=== PATIENT | female | born 1990 | race Caucasian/White ===

== ENCOUNTER 2023-06-04 15:46 | Outpatient (CLI) | payer MEDICAID, SELFPAY ==
--- NOTE | 2023-06-04 16:00 | CRLHL7_ITS ---
For Patients: As a result of the Century Cures Act, medical imaging exams and procedure reports are released immediately into your electronic medical record. You may view this report before your referring provider. If you have questions, please contact your health care provider. INDICATION: Vaginal bleeding. TECHNIQUE: Ultrasound OB pelvis transvaginal. Real-time cerna-scale imaging of the pelvis was performed. COMPARISON: None. FINDINGS: No sign of viable . An ill-defined sac appears in the cervix. The ovaries are of normal size. There are no suspicious fluid collections noted in the cul-de-sac. IMPRESSION: Findings suspicious for an incomplete with an ill-defined probable gestational sac in the cervix. Dictated by Damion Castillo MD @ 06/04/2023 5:56:02 PM (Electronically Signed)
== END 2023-06-04 15:47 | disposition home or self-care (01) ==
LOC: US 15:47
PROVIDERS: Visit Provider Obstetrics & Gynecology
DX: O20.9 Hemorrhage in early pregnancy, unspecified (principal)
CPT/HCPCS: 76801; 76817; 86850; 86900; 86901

== ENCOUNTER 2024-09-11 09:08 | Outpatient (CLI) | payer OTHER, SELFPAY ==
--- NOTE | 2024-09-11 09:15 | CRLHL7_ITS ---
For Patients: As a result of the Century Cures Act, medical imaging exams and procedure reports are released immediately into your electronic medical record. You may view this report before your referring provider. If you have questions, please contact your health care provider. INDICATION: First trimester scan, establish dates. COMPARISON: None. TECHNIQUE: Real-time cerna-scale imaging of the pelvis was performed. FINDINGS: Sonographic imaging demonstrates a twin diamniotic/dichorionic intrauterine gestation. Twin A: The embryo demonstrates a regular cardiac rate measuring 176 beats per minute. The embryo`s crown-rump length measurement of 2.4 cm corresponds to a gestational age of 9 weeks 1 day with a sonographic due date of 04/15/2025. There is a normal-appearing yolk sac. There are no gross abnormalities noted within the embryo at this early state of development. The gestational sac has a normal appearance. Twin B: No heart rate. The embryo`s crown-rump length measurement of 0.35 cm corresponds to a gestational age of 6 weeks 0 days. There is a yolk sac. There are no gross abnormalities noted within the embryo at this early state of development. Small gestational sac is present measuring 1.3 cm, 6 weeks 1 day. A subchorionic hemorrhage is present measuring 3.4 x 0.6 x 1.5 cm. Corpus luteal cyst right ovary. Left ovary not visualized. IMPRESSION: Twin diamniotic/dichorionic gestation. Twin A is living and measures 9 weeks 1 day with a sonographic due date of 04/15/2025. Subchorionic hemorrhage is present measuring 3.4 x 0.6 x 1.5 cm. Twin B is nonviable. Dictated by Cirilo Page MD @ 09/11/2024 12:26:59 PM (Electronically Signed)
== END 2024-09-11 09:09 | disposition home or self-care (01) ==
LOC: US 09:09
PROVIDERS: Visit Provider Registered Nurse
DX: Z34.91 Encounter for supervision of normal pregnancy, unspecified, first trimester (principal); O30.041 Twin pregnancy, dichorionic/diamniotic, first trimester; O20.9 Hemorrhage in early pregnancy, unspecified; Z3A.09 9 weeks gestation of pregnancy
CPT/HCPCS: 76817

== ENCOUNTER 2024-09-11 09:54 | Outpatient (CLI) | payer OTHER, SELFPAY ==
[2024-09-11 15:13] LABS: Chlamydia DNA Amplified* NOT DETECTED (No Detected); GC DNA Amplified* NOT DETECTED (No Detected)
[2024-09-13 01:05] LABS: HPV Source Cervix; HPV, High Risk by TMA Not Detected
== END 2024-09-11 09:55 | disposition home or self-care (01) ==
PROVIDERS: Visit Provider Registered Nurse
DX: Z34.91 Encounter for supervision of normal pregnancy, unspecified, first trimester (principal); Z3A.08 8 weeks gestation of pregnancy; Z12.4 Encounter for screening for malignant neoplasm of cervix
CPT/HCPCS: 83020; 83021; 85660; 86592; 86703; 86704; 86706; 86762; 86787; 86803; 86850; 86900; 86901; 87086; 87340; 87491; 87591; 87624; 87625; 88141; 88142

== ENCOUNTER 2024-12-04 08:05 | Outpatient (CLI) | payer OTHER, SELFPAY | END 2024-12-04 08:06 | disposition home or self-care (01) | LOC: US 08:05 | PROVIDERS: Visit Provider Obstetrics & Gynecology | DX: Z34.92 Encounter for supervision of normal pregnancy, unspecified, second trimester (principal); Z3A.21 21 weeks gestation of pregnancy | CPT/HCPCS: 76805 ==

== ENCOUNTER 2024-12-25 09:58 | Outpatient (CLI) | payer OTHER, SELFPAY ==
--- NOTE | 2024-12-25 10:00 | CRLHL7_ITS ---
For Patients: As a result of the Century Cures Act, medical imaging exams and procedure reports are released immediately into your electronic medical record. You may view this report before your referring provider. If you have questions, please contact your health care provider. OB ULTRASOUND FOLLOW-UP LIMITED 12/25/2024 CLINICAL HISTORY: Follow-up heart views not visualized on FAS. COMPARISON: 12/04/2024, 09/11/2024. TECHNIQUE: Real time cerna scale imaging of the fetus was performed transabdominal. FINDINGS: LMP: 07/12/2024. REJI by LMP: 04/18/2025. GA: 23 weeks 5 days. GESTATION: Single. CERVIX: Visualized. POSITIONING: Vertex. AMNIOTIC FLUID: 4.5 cm SDP. PLACENTA: Technique: TA. Placenta position: Posterior. DOPPLERS: Heart Rate: 130 bpm. BIOMETRY: BDP: 5.9 cm, 24 weeks 0 days. 55.4% HC: 22.2 cm, 24 weeks 2 days. 54.1% AC: 20.1 cm, 24 weeks 5 days. 72.3% FL: 4.4 cm, 25 weeks 2 days. 57.4% FL/AC Ratio: 21.7% HC/AC Ratio: 1.1. EFW: 700.2 grams, 1 lb 9 oz. Age by this US: 24 weeks 2 days. REJI by this US: 04/14/2025. Percentile by REJI: 77.3% IMPRESSION: 1. Sonographic gestational age 24 weeks 2 days and sonographic due date 04/14/2025. Sonographic gestational age is 4 days ahead of the clinical age. 2. Estimated weight 77th percentile. Abdominal circumference 72nd percentile. 3. Four chamber heart, LVOT, RVOT, 3 vessel view, 3 vessel trachea view, aortic arch and descending aorta all visualized on today???s study. A possible small intraventricular septal defect may be present as visualized only on the color Doppler images. Level 2 maternal medicine consult recommended. Cirilo Page M.D. [facility] [email or web address] Transcribed: 11:16 am DW/Dictated by: Cirilo Page MD @ 12/27/2024 8:48:00 PM (Electronically Signed)
== END 2024-12-25 09:59 | disposition home or self-care (01) ==
LOC: US 09:59
PROVIDERS: Visit Provider Obstetrics & Gynecology
DX: Z34.92 Encounter for supervision of normal pregnancy, unspecified, second trimester (principal); Z3A.24 24 weeks gestation of pregnancy
CPT/HCPCS: 76816

== ENCOUNTER 2025-01-06 11:26 | Outpatient (CLI) | payer OTHER, SELFPAY | END 2025-01-06 11:27 | disposition home or self-care (01) | LOC: US 11:26 | PROVIDERS: Visit Provider Obstetrics & Gynecology | DX: O36.8320 Maternal care for abnormalities of the fetal heart rate or rhythm, second trimester, not applicable or unspecified (principal); Z3A.25 25 weeks gestation of pregnancy | CPT/HCPCS: 76811 ==

== ENCOUNTER 2025-01-22 10:30 | Outpatient (CLI) | payer OTHER, SELFPAY | END 2025-01-22 10:31 | disposition home or self-care (01) | LOC: NFLDREF 01-25 01:50 | PROVIDERS: Visit Provider Obstetrics & Gynecology | DX: Z34.82 Encounter for supervision of other normal pregnancy, second trimester (principal) | CPT/HCPCS: 86592 ==

== ENCOUNTER 2025-02-05 11:20 | Outpatient (CLI) | payer OTHER, SELFPAY ==
[2025-02-05 11:47] VITALS: BP 128/91; PULSE 90
[2025-02-05 11:50] LABS: Hematocrit 38.1 % (33.0-51.0); Mean Corpuscular HGB Conc 34 gm/dL (32-36); Mean Corpuscular Hemoglobin 31 pg (26-34); Mean Corpuscular Volume 92 fL (80-100); Platelet Count* 191 K/uL (140-440); Red Blood Count 4.15 m/uL (4.00-5.20); White Blood Count* 10.32 K/uL (4.50-11.00)
[2025-02-05 11:51] LABS: Slide Review Reflex No
[2025-02-05 12:02] VITALS: BP 126/79; PULSE 71
[2025-02-05 12:06] LABS: Alanine Aminotransferase* 47 U/L (4-35); Aspartate Amino Transferase* 46 U/L (12-35); Blood Urea Nitrogen* 9 mg/dL (5-24); Creatinine* 0.5 mg/dL (0.5-1.5); Estimated Glomerular Filt Rate 126 ml/min
[2025-02-05 12:07] LABS: Total Protein Urine 7 mg/dL
[2025-02-05 12:08] LABS: Creatinine Urine 41.3 mg/dL; Protein Creatinine Ratio Urine 0.17 (0-0.19)
[2025-02-05 12:16] VITALS: BP 122/79; PULSE 78
--- NOTE | 2025-02-05 13:19 | PC.OBNST ---
NST Note NST Note Start: 02/05/25 11:26 Freq: ONCE Status: Active Protocol: Document 02/05/25 13:12 [facility] (Rec: 02/05/25 13:16 [facility] Desktop) NST Note 2 Para (# of births) 0 EDC 04/18/25 Gestational Age In Weeks & Days 29 Weeks & 5 Days Patient Presented with Complaint(s) of Other Other Complaints BP monitoring Reactive Yes Appropriate for Gestational Age Yes GALINA Figueroa RNC Date 02/05/25 Reactive Yes Appropriate for Gestational Age Yes GALINA Hobbs RN Date 02/05/25 OB NST charge Yes Complete NST Note via Write Note Yes The provider's electronic signature indicates the NST is reactive/appropriate for gestational age. *Note to provider: If an addendum is required, open the patient's chart and click on the note under the Nurse/Allied Health tab.
== END 2025-02-05 12:50 | disposition home or self-care (01) ==
LOC: OB OUT 11:23 → OB 11:23
PROVIDERS: Visit Provider Obstetrics & Gynecology
DX: O30.043 Twin pregnancy, dichorionic/diamniotic, third trimester (principal); Z3A.29 29 weeks gestation of pregnancy
CPT/HCPCS: 36415; 59025; 82565; 82570; 84156; 84450; 84460; 84520; 85027; G0463

== ENCOUNTER 2025-02-06 20:15 | Outpatient (CLI) | payer OTHER, SELFPAY ==
[2025-02-06 20:22] VITALS: PULSE 81; O2SAT 100
[2025-02-06 20:48] VITALS: BP 118/76; PULSE 76
[2025-02-06 20:49] LABS: Amnisure Rom* Negative
[2025-02-06 21:15] LABS: Clue Cells No Clue Cells Seen (None Seen); Trichomonas No Trichomonas Seen (None Seen); Yeast No Yeast Seen (None Seen)
--- NOTE | 2025-02-06 21:57 | PC.OBNST ---
NST Note NST Note Start: 02/06/25 20:24 Freq: ONCE Status: Active Protocol: Document 02/06/25 21:56 [facility] (Rec: 02/06/25 21:57 [facility]) NST Note 2 Para (# of births) 0 EDC 04/18/25 Gestational Age In Weeks & Days 29 Weeks & 6 Days Patient Presented with Complaint(s) of Leaking fluid Other Complaints patient reports feeling a gush of fluid, white/cloudy Reactive Yes Appropriate for Gestational Age Yes RN Zoila Motta RN Date 02/06/25 Reactive Yes Appropriate for Gestational Age Yes GALINA Mendoza RN Date 02/06/25 OB NST charge Yes Complete NST Note via Write Note Yes The provider's electronic signature indicates the NST is reactive/appropriate for gestational age. *Note to provider: If an addendum is required, open the patient's chart and click on the note under the Nurse/Allied Health tab.
== END 2025-02-06 21:45 | disposition home or self-care (01) ==
LOC: OB OUT 20:18 → OB 20:20
PROVIDERS: Visit Provider Obstetrics & Gynecology
DX: O47.03 False labor before 37 completed weeks of gestation, third trimester (principal); Z3A.29 29 weeks gestation of pregnancy
CPT/HCPCS: 59025; 84112; 87210; G0463

== ENCOUNTER 2025-02-08 11:16 | Outpatient (CLI) | payer OTHER, SELFPAY | END 2025-02-08 11:17 | disposition home or self-care (01) | PROVIDERS: Visit Provider Advanced Practice Midwife | DX: O16.3 Unspecified maternal hypertension, third trimester (principal); Z3A.30 30 weeks gestation of pregnancy | CPT/HCPCS: 82565; 82570; 84156; 84450; 84460; 84520; 84550 ==

== ENCOUNTER 2025-02-26 11:44 | Observation (INO) | payer OTHER, SELFPAY ==
[2025-02-26] VITALS (9 sets, daily range): BP systolic 122–130; BP diastolic 71–81; PULSE 79–127; RESP 16–17; TEMP 36.5–36.8; O2SAT 97–99
[2025-02-26] MEDS: BETAMETHASONE SOD PHOS/ACETATE 6 MG/ML ML 12 MG IM (12:05)
--- NOTE | 2025-02-26 12:33 | P.LDBA_ITS ---
Subjective History of Present Illness Narrative: Naheed is a 35yo at 32w5d GA admitted to Labor and Delivery for observation in the setting of new diagnosis of preeclampsia without severe features. has been complicated by elevated blood pressure without meeting criteria for hypertension, slight transaminitis, family history of preeclampsia, small VSD. Naheed was seen for routine OB visit today. There, she was found to be hypertensive which mcdaniel her 2nd episode of mildly elevated blood pressures thus meeting criteria for hypertensive disorder of . Proceeded to stat preeclampsia labs, which were suggestive for worsening transaminitis with an AST of 58 and ALT of 56 and new proteinuria at 0.31. Remaining labs were within normal limits. Patient denies any headaches, vision changes or right upper quadrant pain. She had a growth ultrasound prior to our visit, which was within normal limits with an EFW 86 percentile. Recommended observation inpatient for serial blood pressure monitoring, betamethasone course, repeat testing and repeat labs tomorrow morning. Patient was counseled on anticipated next steps including potential transfer she had worsening transaminitis (as she would require extended admission for preeclampsia with severe features and medically indicated delivery at 34 weeks) versus dismissal to home tomorrow very close interval follow-up. Please see my clinic note for complete details. Specific Issues/Plans G2 P 0010 Partner: Eliseo? H&P completed by [] on []? ? #Preeclampsia without severe features Dx 02/26, with transaminitis noted > transferred to center for observation BMZ given 02/26- Twice weekly testing, serial growth, weekly preE labs - testing sheet completed 02/26 IOL at 37w0d - needs scheduling/consent #FHx preE On asa 81mg #Small muscular VSD [x] s/p level 2 on 01/06 [x] echo: 02/12/23. Small midseptal VSD, otherwise normal. Rec: elective cardiology eval and echo in the first month of life. [x] repeat growth at 32 weeks in NH&C with MFM #Nonimmune to hepatitis-B. Discussed 10/09/24. Vis given. Recommended. She would still like to consider 11/06/24. #Twin di-di with loss of one fetus in first trimester #Snoring with ?KAR - Consider ENT referral ? Imaging:? * 1st trimester: 09/11/2024-Twin diamniotic/dichorionic gestation. Twin A is living and measures 9 weeks 1 day with a sonographic due date of 04/15/2025. Subchorionic hemorrhage is present measuring 3.4 x 0.6 x 1.5 cm. Twin B is nonviable. * Anatomy scan 12/04/2024: Visualized anatomy is within normal limits. Suboptimal views of the cardiac structures, plan to repeat in 4 weeks. EFW 411 g at 75th percentile, AC 57th percentile. Posterior placenta, no previa, three-vessel cord. MVP of 3.9 cm. Cervix long/closed. * 12/25/2024: f/u to [facility] for cardiac views. 1. Sonographic gestational age 24 weeks 2 days and sonographic due date 04/14/2025. Sonographic gestational age is 4 days ahead of the clinical age. 2. Estimated weight 77th percentile. Abdominal circumference 72nd percentile. 3. Four chamber heart, LVOT, RVOT, 3 vessel view, 3 vessel trachea view, aortic arch and descending aorta all visualized on today's study. A possible small intraventricular septal defect may be present as visualized only on the color Doppler images. Level 2 maternal medicine consult recommended. * 01/06: Small membranous VSD - refer to peds Cardiology. Other anatomy WNL. EFW 874g at 63%ile. MVP 4.2cm. Posterior placenta, breech. * echo: Small mid septal muscular VSD noted. Otherwise normal anatomy. Recommended to have Peds Cardiology and echo in 1st month of life. * Growth 02/26: EFW 2395g at 86%ile, AC 95%ile. MVP 7.1cm. Others: []? ? COVID: Declines Flu: Declines Tdap:?02/05/25 RSV:?N/A 32wk Mental Health:?02/26/25 34wk hgb:??? Pap: [(Only high-risk abnormal pap in problem list)]? OB - Problem Based A/P Additional Plan (1) Transaminitis: Status: Acute (2) Pre-eclampsia affecting , antepartum: Status: Acute (3) Ventricular septal defect, , affecting care of mother, antepartum: Status: Acute (4) : Status: Acute Plan Naheed is a 35yo at 32w5d GA admitted for observation in the setting of newly diagnosed in early preeclampsia without severe features. Preeclampsia labs today were notable for transaminitis, AST of 58 and ALT of 56. She was recommended to be observed for 24 hours inpatient, for serial blood pressure monitoring, testing and repeat labs. - Plan Q 2 blood pressure monitoring during the day, acute for overnight. Plan to treat any sustained severe range blood pressures. - Asymptomatic at present - will monitor for headache, vision changes or right upper quadrant pain. - Repeat NST this evening and tomorrow morning. - Start betamethasone course, anticipate 2nd dose to be given prior to dismissal tomorrow (pending maternal/ stability) - Repeat CBC, Cr, AST and ALT tomorrow morning. If downtrending, plan to discharge to home with close interval follow up for preeclampsia without severe features. With worsening transaminitis or development of preE with SF by any criteria, explained possible transfer could be required for extended inpatient monitoring and medically indicated delivery at 34 weeks. If she discharges over the weekend, plan to start twice weekly testing, week ly preE labs, serial growth US and proceed with IOL at 37w0d GA. OB Exam Physical Exam Vital signs: Temp Pulse Resp BP Pulse Ox 98.2 F 80 16 126/81 99 02/26/25 11:56 02/26/25 12:00 02/26/25 11:56 02/26/25 12:00 02/26/25 11:55 Narrative: Blood pressures have been within normal limits since admission. General: Alert and oriented, no acute distress Psych: Appropriate mood and affect. Intermittently tearful. Abdomen: Gravid. NST: Reactive in clinic. Plan to repeat once further tonight and then tomorrow morning.
[2025-02-27] VITALS (7 sets, daily range): BP systolic 113–125; BP diastolic 64–73; PULSE 78–90; RESP 16; TEMP 36.5–36.9; O2SAT 97–98
[2025-02-27 06:50] LABS: Hematocrit* 37.1 % (33.0-51.0); Hemoglobin* 12.7 gm/dL (12.0-16.0); Mean Corpuscular HGB Conc 34 gm/dL (32-36); Mean Corpuscular Hemoglobin 31 pg (26-34); Mean Corpuscular Volume 91 fL (80-100); Platelet Count* 194 K/uL (140-440); Red Blood Count* 4.08 m/uL (4.00-5.20); White Blood Count* 15.53 K/uL (4.50-11.00)
[2025-02-27 07:06] LABS: Alanine Aminotransferase* 50 U/L (4-35); Aspartate Amino Transferase* 46 U/L (12-35); Blood Urea Nitrogen* 9 mg/dL (5-24); Creatinine* 0.4 mg/dL (0.5-1.5); Estimated Glomerular Filt Rate 133 ml/min
[2025-02-27 07:25] LABS: Slide Review Reflex No
[2025-02-27] MEDS: BETAMETHASONE SOD PHOS/ACETATE 6 MG/ML ML 12 MG IM (09:03)
--- NOTE | 2025-02-27 09:03 | W.PM.OB.MED ---
DS: Providers Provider Time Seen by Provider: 09:00 Date Seen: 02/27/25 Date of admission: 02/26/25 11:44 Primary care physician: Not a Local Provider Admitting Clinician: Jaelyn Miller MD Attending Physician on discharge: Jaelyn Miller MD Date of Discharge: 02/27/25 DS: Diagnosis Discharge Diagnosis (1) Transaminitis: Status: Acute (2) Pre-eclampsia affecting , antepartum: Status: Acute (3) Ventricular septal defect, , affecting care of mother, antepartum: Status: Acute (4) : Status: Acute Discharge Plan Discharge Disposition: Home, Self-Care Date of Admission: 02/26/25 11:44 Attending Provider on Discharge: Kristina Cortes Primary Care Provider: Provider,Not a Local Condition: Stable Anticipated Discharge Date/Time: 02/27/25 09:03 Discharge Medications: Continued DHA 200 mg capsule 200 mg PO DAILY aspirin 81 mg tablet,delayed release (DR/EC) 81 mg PO QDAY Discharge Orders: Discharge Order (Routine); Ordered 02/27/25 Ordered By: Kristina Cortes Patient Education: Preeclampsia During (DC) Discharge Diet: Regular Follow Up Appointments: Provider,Not a Local [Primary Care Provider, Family Practice] Forms: [employer] Info Instructions Hospital Course Course Hospital Course: Naheed is a 35yo at 32w6d GA admitted to Labor and Delivery for observation in the setting of new diagnosis of preeclampsia without severe features and elevated ALT/AST. Other complications include family history of preeclampsia, small VSD. Naheed was seen for routine OB visit with Dr. Miller yesterday 02/26/25. She was found to have mild range in blood pressures, which mcdaniel her 2nd episode of mildly elevated blood pressures. Thus meeting criteria for hypertensive disorder of . Additionally she has worsening transaminitis with an AST of 58 and ALT of 56 and new proteinuria at 0.31. Remaining labs were within normal limits. She was given BMZ#1 yesterday and admitted to L&D for 23 hour observation. Overnight, all blood pressures were within normal limits. Pre-eclampsia labs on this morning: Hgb 12.7 Plt 194 Cr 0.4 ALT 50 AST 46 ALT and AST have both decreased. Denies any persistent headache, vision changes, SOB, right upper quadrant/epigastric pain, or rapidly expanding edema. NST this AM: Baseline 120 beats per minute, moderate variability, Multiple 15 x 15 qualifying accelerations, negative decelerations, [place]: Irritable contractions. Not palpable to patient. Given reassuring BPs and stabilized liver enzymes, ok to discharge with close follow up. surveillance form has been filled out. She understands that she will require twice weekly surveillance with anticipated delivery at 37 weeks. Will given BMZ#2 this AM prior to discharge. Active movements. Denies Ctx, LOF, vaginal bleeding or abnormal vaginal discharge. Strict return and labor precautions reinforced. Labs Labs: Laboratory Tests 02/27/25 Range/Units 06:26 WBC 15.53 H (4.50-11.00) K/uL RBC 4.08 (4.00-5.20) m/uL Hgb 12.7 (12.0-16.0) gm/dL Hct 37.1 (33.0-51.0) % MCV 91 (80-100) fL MCH 31 (26-34) pg MCHC 34 (32-36) gm/dL Plt Count 194 (140-440) K/uL BUN 9 (5-24) mg/dL Creatinine 0.4 L (0.5-1.5) mg/dL Estimated GFR 133 ml/min AST 46 H (12-35) U/L ALT 50 H (4-35) U/L OB Problem List Additional Plan (1) Transaminitis: Status: Acute (2) Pre-eclampsia affecting , antepartum: Status: Acute (3) Ventricular septal defect, , affecting care of mother, antepartum: Status: Acute (4) : Status: Acute DS: Summary Vital Signs Vital Signs: Vital Signs Temp Pulse Resp BP Pulse Ox 02/27/25 07:38 87 113/72 02/27/25 07:37 98 02/27/25 07:35 85 115/73 02/27/25 07:32 97 02/27/25 07:31 98.5 F 16 02/27/25 04:37 78 115/64 97 02/27/25 00:15 97.7 F 02/27/25 00:15 86 125/70 98 02/26/25 20:15 98.1 F 02/26/25 20:15 94 122/79 02/26/25 17:58 97.7 F 80 130/77 97 02/26/25 15:59 98.2 F 79 122/71 02/26/25 14:04 17 02/26/25 14:00 82 124/72 02/26/25 12:00 80 126/81 02/26/25 11:56 98.2 F 16 02/26/25 11:55 99 02/26/25 11:54 82 L Discharge Examination Physical Examination findings: Physical exam: General: No acute distress Psych: Alert and oriented x4, full affect HEENT: Normocephalic, atraumatic Heart: Regular rate and rhythm, no murmur rub or gallop Lungs: Clear to auscultation bilaterally Abdomen: Gravid, soft, no tenderness, rebound, or guarding Lower extremities: No edema or erythema Pelvic exam: Deferred
--- NOTE | 2025-02-27 10:05 | PC.OBNST ---
NST Note NST Note Start: 02/26/25 11:50 Freq: ONCE Status: Active Protocol: Document 02/27/25 08:25 WK (Rec: 02/27/25 10:05 WK [id number]) NST Note 1 Para (# of births) 0 EDC 04/18/25 Gestational Age In 32 Weeks & 6 Days Weeks & Days High Risk Factors High Blood Pressure - Gestational Patient Presented Other with Complaint(s) of Other Complaints Observation for serial BPs, AM labs, and betamethasone. Reactive Yes Appropriate for Yes Gestational Age RN Reymundo RNC Date 02/27/25 Reactive Yes Appropriate for Yes Gestational Age RN Judy RN Date 02/27/25 OB NST charge Yes Complete NST Note Yes via Write Note The provider's electronic signature indicates the NST is reactive/appropriate for gestational age. *Note to provider: If an addendum is required, open the patient's chart and click on the note under the Nurse/Allied Health tab.
== END 2025-02-27 09:22 | disposition home or self-care (01) ==
PROVIDERS: Admitting Provider Obstetrics & Gynecology; Visit Provider Obstetrics & Gynecology
DX: O14.03 Mild to moderate pre-eclampsia, third trimester (principal); R74.01 Elevation of levels of liver transaminase levels; O35.BXX0 Maternal care for other (suspected) fetal abnormality and damage, fetal cardiac anomalies, not applicable or unspecified; R06.83 Snoring; Z3A.32 32 weeks gestation of pregnancy
CPT/HCPCS: 36415; 59025; 76816; 82565; 82570; 84156; 84450; 84460; 84520; 85027; 96372; G0378; G0379; J0702

== ENCOUNTER 2025-03-05 12:56 | Outpatient (CLI) | payer OTHER, SELFPAY ==
--- NOTE | 2025-03-05 13:00 | CRLHL7_ITS ---
For Patients: As a result of the Century Cures Act, medical imaging exams and procedure reports are released immediately into your electronic medical record. You may view this report before your referring provider. If you have questions, please contact your health care provider. INDICATION: Preeclampsia TECHNIQUE: Ultrasound OB pelvis transabdominal. Real-time cerna-scale imaging of the fetus was performed with color Doppler and spectral Doppler analysis of the umbilical artery without stress testing. COMPARISON: 02/26/2025 FINDINGS: Sonographic imaging demonstrates a single living intrauterine gestation. Fetus demonstrates a regular cardiac rate of 159 beats per minute. Fetus has a cephalic orientation. The placenta lies posterior. Amniotic fluid volume appears normal with a MVP of 7.4 cm. breathing movements, motion, and tone were all observed. IMPRESSION: Single viable intrauterine with a biophysical profile 05/07. Dictated by Jarrod Rubio MD @ 03/05/2025 2:29:10 PM (Electronically Signed)
== END 2025-03-05 12:57 | disposition home or self-care (01) ==
LOC: US 12:56
PROVIDERS: Visit Provider Obstetrics & Gynecology
DX: O14.90 Unspecified pre-eclampsia, unspecified trimester (principal)
CPT/HCPCS: 76819; 82565; 84450; 84460

== ENCOUNTER 2025-03-12 12:07 | Outpatient (CLI) | payer OTHER, SELFPAY ==
--- NOTE | 2025-03-12 12:15 | CRLHL7_ITS ---
For Patients: As a result of the Cures Act, medical imaging exams and procedure reports are released immediately into your electronic medical record. You may view this report before your referring provider. If you have questions, please contact your health care provider. OBSTETRICAL ULTRASOUND ??? BIOPHYSICAL PROFILE, 03/12/2025 INDICATION: Preeclampsia without severe features. CLINICAL HISTORY: LMP: 07/12/2024 REJI by LMP: 04/18/2025 Gestational Age: 34 weeks 5 days COMPARISON: 03/05/2025, 02/26/2025, 01/06/2025. TECHNIQUE: Real-time cerna-scale transabdominal imaging of the fetus was performed. FINDINGS: Fetus: Single Cervix: Not visualized positioning: Vertex Amniotic Fluid: 7.0 cm SDP BIOPHYSICAL PROFILE: Gross body movements: 2 tone: 2 Respiratory activity: 2 Amniotic fluid SDP: 2 Total score: 8 Placenta technique: Transabdominal Placenta position: Posterior heart rate: 139 bpm IMPRESSION: 1. Normal biophysical profile score of 8/8. CIRILO ALVAREZ M.D. Diagnostic Radiologist [email or web address] Transcribed: 5:[address]/Dictated by: Cirilo Alvarez MD @ 03/12/2025 3:09:00 PM (Electronically Signed)
== END 2025-03-12 12:08 | disposition home or self-care (01) ==
LOC: US 12:08
PROVIDERS: Visit Provider Obstetrics & Gynecology
DX: O14.03 Mild to moderate pre-eclampsia, third trimester (principal); Z3A.34 34 weeks gestation of pregnancy
CPT/HCPCS: 76819; 82565; 84450; 84460

== ENCOUNTER 2025-03-19 13:43 | Outpatient (CLI) | payer OTHER, SELFPAY ==
--- OUTSIDE RECORDS SUMMARY | 2025-02-12 11:41 | XMS_ITS | Encounter Summary ---
Author Organization [facility] Address [address] [place] [address] Care Team Providers Care Chassis Driver Name Role Phone No Ref-Primary, Physician Primary Care Provider Reason for Referral * CV Testing (Routine) - Closed Specialty Diagnoses / Procedures Referred By Contac t Referred To Contact Cardiology Diagnoses ventricular septal defect affecting antepartum care of mother Procedures Echo (TTE) Complete Non-Fv Credentialed Provider, Radiology [facility] [address] [place] [phone] Phone: tel: Referral ID Status Reason Start Date Expiration Date Visits Re quested Visits Authorized [id number] Closed 01/07/2025 01/07/2026 1 1 Reason for Visit * CV Testing (Routine) - Closed Specialty Diagnoses / Procedures Referred By Contac t Referred To Contact Cardiology Diagnoses ventricular septal defect affecting antepartum care of mother Procedures Echo (TTE) Complete Non-Fv Credentialed Provider, Radiology [facility] [address] [place] [phone] Phone: tel: Referral ID Status Reason Start Date Expiration Date Visits Re quested Visits Authorized [id number] Closed 01/07/2025 01/07/2026 1 1 Encounter Details Date Type Department Care Team (Late st Contact Info) Description 02/12/2025 11:41 AM CDT - 02/12/2025 11:59 PM CDT Hospital Encounter [facility] [address] [place] [phone] Non-Fv Credentialed Provider, Radiology Joseph Miguel MD [facility] [address] [place] [id number] ventricular septal defect affecting antepartum care of mother Discharge Disposition: Home or Self Care Social History Tobacco Use Types Packs/Day Years Used Date Smoking Tobacco: Never Assessed Comments Unknown Sex and Gender Information Value Date Recorded Sex Assigned at Female 02/11/2025 8:06 PM CDT 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 Gender Identity Female 02/11/2025 8:06 PM CDT Sexual Orientation Straight 02/11/2025 8: 06 PM CDT documented as of this encounter Plan of Treatment Not on file documented as of this encounter Procedures Procedure Name Priority Date/Time Associated Diagnosis Comments ECHO COMPLETE Routine 02/12/2025 1 2:22 PM CDT ventricular septal defect affecting antepartum care of mother documented in this encounter Results * ECHO COMPLETE (02/12/2025 12:22 PM CDT) Anatomical Region Laterality Modality Echocardiography 02/12/2025 11:5 5 AM CDT Narrative 02/17/2025 11:16 AM CDT [id number]^NON-FV CREDENTIALED PROVIDER^RADIOLOGY Study ID: [id number] [address] [address] Echocardiogram Name: NAHEED ESPINO Study Date: 02/12/2025 11:55 AM Patient Location: [facility] Gender: Female Patient Class: Outpatient : 1990 Age: 35 yrs Ordering Provider: NON-FV CREDENTIALED PROVIDER, RADIOLOGY Referring Provider: JOSEPH MIGUEL Performed By: La Hicks RDCS Reading Physician: Ramirez Ambrose MD Reason For Study: ventricular septal defect affecting antepartum care of mot Data: Number of fetuses: This is a taylor gestation. Due date: 04/18/2025. Gestational age: 30w5d. Delivery at: [place]. Specific Indication: echocardiogram performed for suspected ventricular septal defect. CONCLUSIONS Small midseptal muscular ventricular septal defect; otherwise normal cardia anatomy. Normal right and left ventricular size and function. No effusion. The abnormal results of the echocardiogram were explained to the patient. No additional echocardiograms are recommended. An elective cardiology evaluation and echocardiogram is recommended in the first month of life. Technical Information: A complete two dimensional, MMODE, spectral and color Doppler echocardiogram is performed. The study quality is good. position and segmental anatomy: The fetus in vertex position. The heart is in left chest. The cardiac apex points towards the left. There is normal atrial arrangement, with concordant atrioventricular and ventriculoarterial connections. The abdominal aorta is to the left of the spine. There is a left sided stomach. Systemic and pulmonary veins: The systemic venous return is normal. At least one right and one left pulmonary veins are seen returning to the left atrium. Atria and atrial septum: Normal right atrial size. The left atrium is normal in size. The flap of the foramen ovale opens in to the left atrium. There is laminar snnfg-nz-asoo shunting across the foramen ovale. Atrioventricular valves: The tricuspid valve is normal in appearance and motion. There is no tricuspid insufficiency. The mitral valve is normal in appearance and motion. There is no mitral valve insufficiency. Ventricles and ventricular septum: Normal right ventricular size. Normal right ventricular systolic function. Normal left ventricular size. Normal left ventricular systolic function. There is a small to moderate, mid-muscular ventricular septal defect. Outflows tracts: Normal great artery relationship. The right ventricular outflow tract is normal in caliber. The pulmonary valve has normal appearance and motion. There is normal flow across the pulmonary valve. There is unobstructed flow through the left ventricular outflow tract. The aortic valve has normal appearance and motion. There is normal flow across the aortic valve. Great arteries: The main pulmonary artery has normal appearance. There is unobstructed flow in the main pulmonary artery. The pulmonary artery bifurcation is normal. There is unobstructed flow in both branch pulmonary arteries. The ductus arteriosus has normal appearance with normal antegrade flow. There is unobstructed antegrade flow in the ascending aorta. The aortic arch appears normal. There is unobstructed antegrade flow in the aortic arch. Effusions and extracardiac findings: No pericardial effusion. No hydrops. cardiac rhythm: heart rate is regular at 131 bpm. Doppler: There is normal flow in the ductus venosus, umbilical artery and umbilical vein. echocardiography cannot rule out small atrial or ventricular septal defects, persistent ductus arteriosus, mild coarctation of the aorta, partial anomalous pulmonary venous return, minor anatomic valve anomalies or coronary artery anomalies. Reading Physician: Ramirez Ambrose MD 02/17/2025 11:16 AM Procedure Note Ramirez Ambrose MD - 02/17/2025 [id number]^NON-FV CREDENTIALED PROVIDER^RADIOLOGY Study ID:[id number] [id number] [place] [address] Echocardiogram Name: NAHEED ESPINO Study Date: 02/12/2025 11:55 AM Patient Location:[facility] Gender: Female Patient Class:Outpatient : 1990 Age: 35 yrs Ordering Provider: NON-FV CREDENTIALED PROVIDER, RADIOLOGY Referring Provider: JOSEPH MIGUEL Performed By: La Hicks RDCS Reading Physician: Ramirez Ambrose MD Reason For Study: ventricular septal defect affecting antepartumcare of mot Data: Number of fetuses: This is a taylor gestation. Duedate: 04/18/2025. Gestational age: 30w5d. Delivery at: [place]. Specific Indication: echocardiogram performed for suspected ventricular septal defect. CONCLUSIONS Small midseptal muscular ventricular septal defect; otherwise normalcardia anatomy. Normal right and left ventricular size and function. Noeffusion. The abnormal results of the echocardiogram were explained to the patient. No additional echocardiograms are recommended. Anelective cardiology evaluation and echocardiogram is recommended in the first monthof life. Technical Information: A complete two dimensional, MMODE, spectral and color Doppler echocardiogram is performed. The study quality is good. position and segmental anatomy: The fetus in vertex position. The heart is in left chest. The cardiacapex points towards the left. There is normal atrial arrangement, withconcordant atrioventricular and ventriculoarterial connections. The abdominal aortais to the left of the spine. There is a left sided stomach. Systemic and pulmonary veins: The systemic venous return is normal. At least one right and one left pulmonary veins are seen returning to the left atrium. Atria and atrial septum: Normal right atrial size. The left atrium is normal in size. The flap ofthe foramen ovale opens in to the left atrium. There is htywkunlduoa-ag-udna shunting across the foramen ovale. Atrioventricular valves: The tricuspid valve is normal in appearance and motion. There is notricuspid insufficiency. The mitral valve is normal in appearance and motion. Thereis no mitral valve insufficiency. Ventricles and ventricular septum: Normal right ventricular size. Normal right ventricular systolicfunction. Normal left ventricular size. Normal left ventricular systolic function.There is a small to moderate, mid-muscular ventricular septal defect. Outflows tracts: Normal great artery relationship. The right ventricular outflow tract is normal in caliber. The pulmonary valve has normal appearance and motion.There is normal flow across the pulmonary valve. There is unobstructed flowthrough the left ventricular outflow tract. The aortic valve has normal appearanceand motion. There is normal flow across the aortic valve. Great arteries: The main pulmonary artery has normal appearance. There is unobstructedflow in the main pulmonary artery. The pulmonary artery bifurcation is normal.There is unobstructed flow in both branch pulmonary arteries. The ductusarteriosus has normal appearance with normal antegrade flow. There is unobstructed antegrade flow in the ascending aorta. The aortic arch appears normal.There is unobstructed antegrade flow in the aortic arch. Effusions and extracardiac findings: No pericardial effusion. No hydrops. cardiac rhythm: heart rate is regular at 131 bpm. Doppler: There is normal flow in the ductus venosus, umbilical artery andumbilical vein. echocardiography cannot rule out small atrial or ventricularseptal defects, persistent ductus arteriosus, mild coarctation of the aorta,partial anomalous pulmonary venous return, minor anatomic valve anomalies orcoronary artery anomalies. Reading Physician: Ramirez Ambrose MD 02/17/2025 11:16 AM us Radiology Non-Fv Credentialed Provider CV PEDS E CHO ORDERABLES Edited Result - Final documented in this encounter Visit Diagnoses Diagnosis ventricular septal defect affecting antepartum care of mother Other known or suspected abnormality, not elsewhere classified, affecting management of mother, antepartum condition or complication documented in this encounter Care Teams Chassis Driver Relationship Specialty Start Date End Date No Ref-Primary, Physician PCP - General 01/07/25 documented as of this encounter
--- OUTSIDE RECORDS SUMMARY | 2025-02-12 11:41 | XMS_ITS | Encounter Summary ---
Author Organization [facility] Address [address] [place] [id number] Care Team Providers Care Apprentice Lineman Third Step Name Role Phone No Ref-Primary, Physician Primary Care Provider Reason for Referral * CV Testing (Routine) - Closed Specialty Diagnoses / Procedures Referred By Contac t Referred To Contact Cardiology Diagnoses ventricular septal defect affecting antepartum care of mother Procedures Echo (TTE) Complete Non-Fv Credentialed Provider, Radiology [facility] [address] [place] [phone] Phone: tel: Referral ID Status Reason Start Date Expiration Date Visits Re quested Visits Authorized [id number] Closed 01/07/2025 01/07/2026 1 1 Reason for Visit * CV Testing (Routine) - Closed Specialty Diagnoses / Procedures Referred By Contac t Referred To Contact Cardiology Diagnoses ventricular septal defect affecting antepartum care of mother Procedures Echo (TTE) Complete Non-Fv Credentialed Provider, Radiology [facility] [address] [place] [phone] Phone: tel: Referral ID Status Reason Start Date Expiration Date Visits Re quested Visits Authorized [id number] Closed 01/07/2025 01/07/2026 1 1 Encounter Details Date Type Department Care Team (Late st Contact Info) Description 02/12/2025 11:41 AM CDT - 02/12/2025 11:59 PM CDT Hospital Encounter [facility] [address] [place] [phone] Non-Fv Credentialed Provider, Radiology oJseph Miguel MD [facility] [address] [place] [id number] ventricular septal defect affecting antepartum care of mother Discharge Disposition: Home or Self Care Social History Tobacco Use Types Packs/Day Years Used Date Smoking Tobacco: Never Assessed Comments Unknown Sex and Gender Information Value Date Recorded Sex Assigned at Female 02/11/2025 8:06 PM CDT 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 Gestational age: 30w5d. Delivery at: [facility]. Specific Indication: echocardiogram performed for suspected ventricular [...] to the left atrium. There is laminar [id number]-bv-kiwz shunting across the foramen ovale. Atrioventricular valves: [...] Procedure Note Ramirez Ambrose MD - 02/17/2025 [id number]^NON-FV CREDENTIALED PROVIDER^RADIOLOGY Study ID:[id number] [id number] [place] [address] Echocardiogram Name: NAHEED ESPINO Study Date: 02/12/2025 11:55 AM Patient Location:[facility] Gender: Female Patient Class:Outpatient : 1990 Age: 35 yrs Ordering Provider: NON-FV CREDENTIALED PROVIDER, RADIOLOGY Referring Provider: JOSEPH MIGUEL Performed By: La Hicks RDCS Reading Physician: Ramirez Ambrose MD Reason For Study: ventricular septal defect affecting antepartumcare of mot Data: Number of fetuses: This is a taylor gestation. Duedate: 04/18/2025. Gestational age: 30w5d. Delivery at: [facility]. Specific Indication: echocardiogram performed for suspected ventricular [...] in to the left atrium. There is lxhsegribauz-im-wngb shunting across the foramen ovale. Atrioventricular valves: [...] complication documented in this encounter Care Teams Apprentice Lineman Third Step Relationship Specialty Start Date End Date No Ref-Primary, Physician PCP - General 01/07/25 documented as of this encounter
--- NOTE | 2025-03-19 14:00 | CRLHL7_ITS ---
For Patients: As a result of the Century Cures Act, medical imaging exams and procedure reports are released immediately into your electronic medical record. You may view this report before your referring provider. If you have questions, please contact your health care provider. INDICATION: Preeclampsia TECHNIQUE: Ultrasound OB pelvis transabdominal. Real-time cerna-scale imaging of the fetus was performed with color Doppler and spectral Doppler analysis of the umbilical artery without stress testing. COMPARISON: 03/12/2025 FINDINGS: Sonographic imaging demonstrates a single living intrauterine gestation. Fetus demonstrates a regular cardiac rate of 147 beats per minute. Fetus has a cephalic orientation. The placenta lies posterior. Amniotic fluid volume appears normal with a MVP of 7.0 cm. breathing movements, motion, and tone were all observed. IMPRESSION: Single viable intrauterine with a biophysical profile 05/07. Dictated by Jarrod Rubio MD @ 03/19/2025 2:53:05 PM (Electronically Signed)
--- OUTSIDE RECORDS SUMMARY | 2025-03-19 14:29 | XMS_ITS | Clinical Summary ---
Author Organization [facility] Address [address] [place] [address] Care Team Providers Care Commercial Account Manager Name Role Phone Joseph Escalante MD Primary Care Provider [phone] Source Comments You are receiving this document as you are listed as the primary care provider,follow-up provider, or the patient has been referred to you for consultation.This is in compliance with the Medicare and[facility] EHR Incentive Program,which states Providers who transition their patient to another setting of careor provider of care or refers their patient to another provider of care shouldprovide summary care record for each transition of care or referral. [facility] Allergies No known active allergies Medications No known medications Immunizations Immunization Administration Dates Next Due HepB Ped/Adol (0-18 yrs) 04/20/2003,03/19/2003 Influenza IIV4 (Quadrivalent) 0.5mL (84291) 11/01 MMR 03/19/2003 Pfizer Monovalent 12+ Purple Top 07/19/2021,07/01,06/28/2021 Td 03/19/2003 Tdap 11/19/2019 Varicella 06/15/2020 Family History Medical History Relation Name Comments Hypertension Father Cataract Maternal Grandmother Cataract Paternal Grandmother Amblyopia/Strabismus Negative Family History Blindness Negative Family History Cancer Negative Family History Diabetes Negative Family History Macular Degeneration Negative Family History Retinal Detachment Negative Family History Stroke Negative Family History Thyroid Disorder Negative Family History Relation Name Status Comments Father Maternal Grandmother Paternal Grandmother Social History Tobacco Use Types Packs/Day Years Used Date Smoking Tobacco: Never Smokeless Tobacco: Never Alcohol Use Standard Drinks/Week Comments Yes 0 (1 standard drink = 0.6 oz pur e alcohol) Comments No Sex and Gender Information Value Date Recorded Sex Assigned at Not on file Legal Sex Female 5:07 AM CDT Gender Identity Not on file Sexual Orientation Not on file Last Filed Vital Signs Vital Sign Reading Time Taken Comments Blood Pressure 102/70 12/25/2005 3:00 PM LEAD SYSTEMS ARCHITECT Pulse 76 03/04/2006 7:15 PM CDT Temperature 37.1 C (98.7 F) 03/04/2006 7:15 PM CDT Respiratory Rate 18 03/04/2006 7:15 PM CDT Oxygen Saturation - - Inhaled Oxygen Concentration - - Weight 81.6 kg (180 lb) 07/15/2020 2:08 PM CDT Height 165.1 cm (5' 5) 07/15/2020 2:08 PM CDT Body Mass Index 29.95 07/15/2020 2:08 PM CDT Plan of Treatment Health Maintenance Due Date Last Done Comments Cervical Cancer Screening Due 1991 Hep C Screening (Preventive Services) 1991 HepB Vaccine (3) 07/09/2003 04/20/2003, 03/19/2003 HIV Screening (Preventive Services) 2007 Adult Preventive Visit 2009 03/19/2003 COVID-19 Vaccine (4 - 2023-2 5 season) 2024 07/19/2021, 07/19/2021, 06/28/2021 Influenza Vaccine (Season Ended) 2025 11/19/2019 DTaP/Tdap/Td Vaccine (3 - Tdap) 11/19/2029 11/19/2019, 03/19/2003 Zoster/Shingles Vaccine (1 o f 2) 2041 HPV Vaccine Aged Out No longer eligi ble based on patient's age to complete this topic HepA Vaccine Aged Out No longer eligi ble based on patient's age to complete this topic Hib Vaccine Aged Out No longer eligi ble based on patient's age to complete this topic IPV (Polio) Vaccine Aged Out No longe r eligible based on patient's age to complete this topic MCV4 Vaccine Aged Out No longer eligi ble based on patient's age to complete this topic Meningococcal B Vaccine Aged Out No l onger eligible based on patient's age to complete this topic Pneumococcal Vaccine Aged Out No long er eligible based on patient's age to complete this topic Insurance SELF MANAGED CARE HP COMM HP FAMILY DENTAL SELF MANAGED CARE * Guarantor: Yasmeen Espino Account Type Relation to Patient Date of Phone Billing Address Personal/Family 1968 [address] [facility] [place] [address] Care Teams Commercial Account Manager Relationship Specialty [place] [address] [place] [address] PCP - General 10/03/20
--- OUTSIDE RECORDS SUMMARY | 2025-03-19 14:29 | XMS_ITS | Encounter Summary ---
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
--- OUTSIDE RECORDS SUMMARY | 2025-03-19 14:29 | XMS_ITS | Encounter Summary ---
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
--- OUTSIDE RECORDS SUMMARY | 2025-03-19 14:29 | XMS_ITS | Clinical Summary ---
Author Organization [facility] Address [address] [place] [address]. [place] [address] Care Team Providers Care Merchandise Pickup/Receiving Associate Name Role Phone No Ref-Primary, Physician Primary Care Provider Encounters Date Type Department Care Team Description 02/12/2025 11:41 AM CDT - 02/12/2025 11:59 PM CDT Hospital Encounter [facility] [address] [place] [phone] Non- Credentialed Provider, Radiology Joseph Miguel MD ventricular septal defect affecting antepartum care of mother Discharge Disposition: Home or Self Care 02/12/2025 Travel 02/11/2025 Travel 01/06/2025 Medical Correspondence [facility] Information Management [address] [facility] [address] [place] [address] Scan, Non-Provider from Last 3 Months Social History Tobacco Use Types Packs/Day Years Used Date Smoking Tobacco: Never Assessed Comments Unknown Sex and Gender Information Value Date Recorded Sex Assigned at Female 02/11/2025 8:06 PM CDT Legal Sex Female 4:22 AM WATER MAIN PIPE LAYER Gender Identity Female 02/11/2025 8:06 PM CDT Sexual Orientation Straight 02/11/2025 8: 06 PM CDT Plan of Treatment Health Maintenance Due Date Last Done Comments ADVANCE CARE PLANNING 1990 ANNUAL REVIEW OF HM ORDERS 1991 HEPATITIS B VACCINE (3 of 3 - 3-dose series) 07/09/2003 04/20/2003, 03/19/2003 YEARLY PREVENTIVE VISIT 03/19/2004 03/19/2003 HIV SCREENING 2006 HEPATITIS C SCREENING 2009 PNEUMOCOCCAL VACCINE: PEDIATRICS (0 to 5 YEARS) AND AT-RISK PATIENTS (6 to 49 YEARS) (1 of 2 - PCV) 2010 PAP 01/17/2012 COVID-19 VACCINE (3 - 2023-2 5 season) 2024 07/19/2021, 06/28/2021 PHQ-2 (once per calendar year) 2024 INFLUENZA VACCINE (Season Ended) 2025 11/19/2019 DTAP/TDAP/TD VACCINE (4 - Td or Tdap) 02/05/2035 02/05/2025, 11/19/2019, 03/19/2003 ZOSTER VACCINE (1 of 2) 2041 HPV VACCINE Aged Out No longer eligi ble based on patient's age to complete this topic MENINGITIS VACCINE Aged Out No longer eligible based on patient's age to complete this topic Procedures Procedure Name Priority Date/Time Associated Diagnosis Comments ECHO COMPLETE Routine 02/12/2025 1 2:22 PM CDT ventricular septal defect affecting antepartum care of mother from Last 3 Months Results * ECHO COMPLETE (02/12/2025 12:22 PM CDT) Anatomical Region Laterality Modality Echocardiography 02/12/2025 11:5 5 AM CDT Narrative 02/17/2025 11:16 AM CDT [id number]^NON-FV CREDENTIALED PROVIDER^RADIOLOGY Study ID: [id number] [facility] [address] [address] Echocardiogram Name: NAHEED ESPINO Study Date: 02/12/2025 11:55 AM Patient Location: [facility] Gender: Female Patient Class: Outpatient : 1990 Age: 35 yrs Ordering Provider: NON-FV CREDENTIALED PROVIDER, RADIOLOGY Referring Provider: JOSEPH MIGUEL Performed By: La Hicks RDCS Reading Physician: Ramirez Ambrose MD Reason For Study: ventricular septal defect affecting antepartum care of mot Data: Number of fetuses: This is a taylor gestation. Due date: 04/18/2025. Gestational age: 30w5d. Delivery at: [place]. Specific Indication: echocardiogram performed for suspected ventricular [...] to the left atrium. There is laminar ovvfz-jr-yuus shunting across the foramen ovale. Atrioventricular valves: [...] Procedure Note Ramirez Ambrose MD - 02/17/2025 [id number]^NON-FV CREDENTIALED PROVIDER^RADIOLOGY Study ID:[id number] [facility]'[address] [place] [address] Echocardiogram Name: NAHEED ESPINO Study Date: 02/12/2025 11:55 AM Patient Location:[facility] Gender: Female Patient Class:Outpatient : 1990 Age: 35 yrs Ordering Provider: NON-FV CREDENTIALED PROVIDER, RADIOLOGY Referring Provider: JOSEPH MIGUEL Performed By: La Hicks RDCS Reading Physician: Ramirez Ambrose MD Reason For Study: ventricular septal defect affecting antepartumcare of mot Data: Number of fetuses: This is a taylor gestation. [place]ued[place]: 04/18/2025. Gestational age: 30w5d. Delivery at: [place]. Specific Indication: echocardiogram performed for suspected ventricular [...] in to the left atrium. There is pulphmoverkf-nq-qsls shunting across the foramen ovale. Atrioventricular valves: [...] E CHO ORDERABLES Edited Result - Final from Last 3 Months Insurance [employer] Care Teams Merchandise Pickup/Receiving Associate Relationship Specialty Start Date End Date No Ref-Primary, Physician PCP - General 01/07/25
--- OUTSIDE RECORDS SUMMARY | 2025-03-20 00:59 | XMS_ITS | Clinical Summary ---
Author Organization [facility] Address [address] [place] [address] Care Team Providers Care Underwriter Mortgage Loan Name Role Phone Joseph Escalante MD Primary Care Provider [phone] Source Comments You are receiving this document as you are listed as the primary care provider,follow-up provider, or the patient has been referred to you for consultation.This is in compliance with the Medicare and[facility] E[facility] Incentive Program,which states Providers who transition their patient to another setting of careor provider of care or refers their patient to another provider of care shouldprovide summary care record for each transition of care or referral. [employer] Allergies No known active allergies Medications No known medications Immunizations Immunization Administration Dates Next Due HepB Ped/Adol (0-18 yrs) 04/20/2003,03/19/2003 Influenza IIV4 (Quadrivalent) 0.5mL (22408) 11/01 MMR 03/19/2003 Pfizer Monovalent 12+ Purple [...] Comments Blood Pressure 102/70 12/25/2005 3:00 PM CURRICULUM MANAGER Pulse 76 03/04/2006 7:15 PM CDT Temperature [...] Date of Phone Billing Address Personal/Family 1968 [address] [facility] [place] [address] Care Teams Underwriter Mortgage Loan Relationship Specialty Start [place] [address] [place] [address] PCP - General 10/03/20
--- OUTSIDE RECORDS SUMMARY | 2025-03-20 00:59 | XMS_ITS | Clinical Summary ---
Author Organization [facility] Address [address] [place] [address]. [place] [address] Care Team Providers Care Forest Fire Specialist Supervisor Name Role Phone No Ref-Primary, Physician Primary Care Provider Encounters Date Type Department Care Team Description 02/12/2025 11:41 AM CDT - 02/12/2025 11:59 PM CDT Hospital Encounter [facility] Heart Care [address] [place] [phone] Non- Credentialed Provider, Radiology Joseph Miguel MD ventricular septal defect affecting antepartum care of mother Discharge Disposition: Home or Self Care 02/12/2025 Travel 02/11/2025 Travel 01/06/2025 Medical Correspondence [facility] Information Management [address] [facility] [address] [place] [address] Scan, Non-Provider from Last 3 Months Social History Tobacco Use Types Packs/Day Years Used Date Smoking Tobacco: Never Assessed Comments Unknown Sex and Gender Information Value Date Recorded Sex Assigned at Female 02/11/2025 8:06 PM CDT Legal Sex Female 4:22 AM PACKAGING DESIGNER Gender Identity Female 02/11/2025 8:06 PM CDT [...] AM CDT Narrative 02/17/2025 11:16 AM CDT [id number]^NON-FV CREDENTIALED PROVIDER^RADIOLOGY Study ID: [id number] [facility] [address] [address] Echocardiogram Name: NAHEED ESPINO Study Date: 02/12/2025 11:55 AM Patient Location: [facility] Gender: Female Patient Class: Outpatient : 1990 Age: 35 yrs Ordering Provider: NON-FV CREDENTIALED PROVIDER, RADIOLOGY Referring Provider: JOSEPH MIGUEL Performed By: La Hicks RDCS Reading Physician: Ramirez Ambrose MD Reason For Study: ventricular septal defect affecting antepartum care of mot Data: Number of fetuses: This is a taylor gestation. Due date: 04/18/2025. Gestational age: 30w5d. Delivery at: [place]. Specific Indication: echocardiogram performed for suspected ventricular [...] to the left atrium. There is laminar efuam-su-cyth shunting across the foramen ovale. Atrioventricular valves: [...] Procedure Note Ramirez Ambrose MD - 02/17/2025 [id number]^NON-FV CREDENTIALED PROVIDER^RADIOLOGY Study ID:[id number] [facility]'[address] [place] [address] Echocardiogram Name: NAHEED ESPINO Study Date: 02/12/2025 11:55 AM Patient Location:[facility] Gender: Female Patient Class:Outpatient : 1990 Age: 35 yrs Ordering Provider: NON-FV CREDENTIALED PROVIDER, RADIOLOGY Referring Provider: JOSEPH MIGUEL Performed By: La Hicks RDCS Reading Physician: Ramirez Ambrose MD Reason For Study: ventricular septal defect affecting antepartumcare of mot Data: Number of fetuses: This is a taylor gestation. Duedate: 04/18/2025. Gestational age: 30w5d. Delivery at: [place]. Specific Indication: echocardiogram performed for suspected ventricular [...] in to the left atrium. There is rzjeqgbsszxh-zz-otuf shunting across the foramen ovale. Atrioventricular valves: [...] - Final from Last 3 Months Insurance [employer] Care Teams Forest Fire Specialist Supervisor Relationship Specialty Start Date End Date No Ref-Primary, Physician PCP - General 01/07/25
--- OUTSIDE RECORDS SUMMARY | 2025-03-20 00:59 | XMS_ITS | Encounter Summary ---
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
--- OUTSIDE RECORDS SUMMARY | 2025-03-20 00:59 | XMS_ITS | Encounter Summary ---
Author Organization [facility] Address [address] [place] [address] Care Team Providers Care Transplant Immunologist Name Role Phone No Ref-Primary, Physician Primary Care Provider Encounter Details Date Type Department Care Team (Latest Contact Info) Description 02/12/2025 Travel Social History Tobacco Use Types Packs/Day Years Used Date Smoking Tobacco: Never Assessed Comments Unknown Sex and Gender Information Value Date Recorded Sex Assigned at Female 02/11/2025 8:06 PM CDT Legal Sex Female 4:22 AM PRICING CONSULTANT Gender Identity Female 02/11/2025 8:06 PM CDT Sexual Orientation Straight 02/11/2025 8: 06 PM CDT documented as of this encounter Plan of Treatment Not on file documented as of this encounter Visit Diagnoses Not on filedocumented in this encounter Care Teams Transplant Immunologist Relationship Specialty Start Date End Date No Ref-Primary, Physician PCP - General 01/07/25 documented as of this encounter
== END 2025-03-19 13:44 | disposition home or self-care (01) ==
LOC: US 13:43
PROVIDERS: Visit Provider Obstetrics & Gynecology
DX: O14.90 Unspecified pre-eclampsia, unspecified trimester (principal)
CPT/HCPCS: 76819; 82565; 84450; 84460; 87081; 87653

== ENCOUNTER 2025-03-26 11:45 | Outpatient (CLI) | payer OTHER, SELFPAY ==
--- OUTSIDE RECORDS SUMMARY | 2025-02-12 11:41 | XMS_ITS | Encounter Summary ---
Author Organization [facility] Address [address] [place] [id number] Care Team Providers Care Bread Slicer Machine Name Role Phone No Ref-Primary, Physician Primary Care Provider Reason for Referral * CV Testing (Routine) - Closed Specialty Diagnoses / Procedures Referred By Contac t Referred To Contact Cardiology Diagnoses ventricular septal defect affecting antepartum care of mother Procedures Echo (TTE) Complete Non-Fv Credentialed Provider, Radiology [facility] [address] [place] [phone] Phone: tel: Referral ID Status Reason Start Date Expiration Date Visits Re quested Visits Authorized [id number] Closed 01/07/2025 01/07/2026 1 1 Reason for Visit * CV Testing (Routine) - Closed Specialty Diagnoses / Procedures Referred By Contac t Referred To Contact Cardiology Diagnoses ventricular septal defect affecting antepartum care of mother Procedures Echo (TTE) Complete Non-Fv Credentialed Provider, Radiology [facility] [address] [place] [phone] Phone: tel: Referral ID Status Reason Start Date Expiration Date Visits Re quested Visits Authorized [id number] Closed 01/07/2025 01/07/2026 1 1 Encounter Details Date Type Department Care Team (Late st Contact Info) Description 02/12/2025 11:41 AM CDT - 02/12/2025 11:59 PM CDT Hospital Encounter [facility] [address] [place] [phone] Non-Fv Credentialed Provider, Radiology Joseph Miguel MD [facility] [address] [place] [phone] ventricular septal defect affecting antepartum care of mother Discharge Disposition: Home or Self Care Social History Tobacco Use Types Packs/Day Years Used Date Smoking Tobacco: Never Assessed Comments Unknown Sex and Gender Information Value Date Recorded Sex Assigned at Female 02/11/2025 8:06 PM CDT 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 Gestational age: 30w5d. Delivery at: [place]. Specific Indication: echocardiogram performed for suspected ventricular [...] to the left atrium. There is laminar rjrxk-tu-bssg shunting across the foramen ovale. Atrioventricular valves: [...] Procedure Note Ramirez Ambrose MD - 02/17/2025 [id number]^NON-FV CREDENTIALED PROVIDER^RADIOLOGY Study ID:[id number] [id number] [place] [address] Echocardiogram Name: NAHEED ESPINO Study Date: 02/12/2025 11:55 AM Patient Location:[facility] Gender: Female Patient Class:Outpatient : 1990 Age: 35 yrs Ordering Provider: NON-FV CREDENTIALED PROVIDER, RADIOLOGY Referring Provider: JOSEPH MIGUEL Performed By: La Hicks RDCS Reading Physician: Ramirez Ambrose MD Reason For Study: ventricular septal defect affecting antepartumcare of mot Data: Number of fetuses: This is a taylor gestation. Duedate: 04/18/2025. Gestational age: 30w5d. Delivery at: [place]. Specific Indication: echocardiogram performed for suspected ventricular [...] in to the left atrium. There is joydfgtvgnnp-kr-wjkg shunting across the foramen ovale. Atrioventricular valves: [...] complication documented in this encounter Care Teams Bread Slicer Machine Relationship Specialty Start Date End Date No Ref-Primary, Physician PCP - General 01/07/25 documented as of this encounter
--- OUTSIDE RECORDS SUMMARY | 2025-02-12 11:41 | XMS_ITS | Encounter Summary ---
Author Organization [facility] Address [address] [place] [id number] Care Team Providers Care Size Changer Name Role Phone No Ref-Primary, Physician Primary Care Provider Reason for Referral * CV Testing (Routine) - Closed Specialty Diagnoses / Procedures Referred By Contac t Referred To Contact Cardiology Diagnoses ventricular septal defect affecting antepartum care of mother Procedures Echo (TTE) Complete Non-Fv Credentialed Provider, Radiology [facility] [address] [place] [phone] Phone: tel: Referral ID Status Reason Start Date Expiration Date Visits Re quested Visits Authorized [id number] Closed 01/07/2025 01/07/2026 1 1 Reason for Visit * CV Testing (Routine) - Closed Specialty Diagnoses / Procedures Referred By Contac t Referred To Contact Cardiology Diagnoses ventricular septal defect affecting antepartum care of mother Procedures Echo (TTE) Complete Non-Fv Credentialed Provider, Radiology [facility] [address] [place] [phone] Phone: tel: Referral ID Status Reason Start Date Expiration Date Visits Re quested Visits Authorized [id number] Closed 01/07/2025 01/07/2026 1 1 Encounter Details Date Type Department Care Team (Late st Contact Info) Description 02/12/2025 11:41 AM CDT - 02/12/2025 11:59 PM CDT Hospital Encounter [facility] [address] [place] [phone] Non-Fv Credentialed Provider, Radiology Joseph Miguel MD [facility] [address] [place] [phone] ventricular septal defect affecting antepartum care of mother Discharge Disposition: Home or Self Care Social History Tobacco Use Types Packs/Day Years Used Date Smoking Tobacco: Never Assessed Comments Unknown Sex and Gender Information Value Date Recorded Sex Assigned at Female 02/11/2025 8:06 PM CDT Legal Sex Female 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 Gestational age: 30w5d. Delivery at: [facility]. Specific Indication: echocardiogram performed for suspected ventricular [...] to the left atrium. There is laminar dlmna-qk-zpyp shunting across the foramen ovale. Atrioventricular valves: [...] Procedure Note Ramirez Ambrose MD - 02/17/2025 [id number]^NON-FV CREDENTIALED PROVIDER^RADIOLOGY Study ID:[id number] [id number] [place] [address] Echocardiogram Name: NAHEED ESPINO Study Date: 02/12/2025 11:55 AM Patient Location:[facility] Gender: Female Patient Class:Outpatient : 1990 Age: 35 yrs Ordering Provider: NON-FV CREDENTIALED PROVIDER, RADIOLOGY Referring Provider: JOSEPH MIGUEL Performed By: La Hicks RDCS Reading Physician: Ramirez Ambrose MD Reason For Study: ventricular septal defect affecting antepartumcare of mot Data: Number of fetuses: This is a taylor gestation. Duedate: 04/18/2025. Gestational age: 30w5d. Delivery at: [facility]. Specific Indication: echocardiogram performed for suspected ventricular [...] in to the left atrium. There is xsbaeykcfgbm-ks-sptt shunting across the foramen ovale. Atrioventricular valves: [...] complication documented in this encounter Care Teams Size Changer Relationship Specialty Start Date End Date No Ref-Primary, Physician PCP - General 01/07/25 documented as of this encounter
--- NOTE | 2025-03-26 12:15 | CRLHL7_ITS ---
For Patients: As a result of the Century Cures Act, medical imaging exams and procedure reports are released immediately into your electronic medical record. You may view this report before your referring provider. If you have questions, please contact your health care provider. REJI by LMP: 04/18/2025. GA: 36w, 5d. Single. INDICATION: Pre-eclampsia. CERVIX: Not visualized. POSITIONING: Vertex. AMNIOTIC FLUID: 7 cm SDP. BIOPHYSICAL PROFILE: Total score: 8. Gross body movements: 2. tone: 2. Respiratory activity: 2. Amniotic fluid: 2. (SDP N: Increase 2 x 1 cm) PLACENTA: Technique: Transabdominal. PLACENTA POSITION: Posterior. DOPPLER: heart rate: 129 bpm. Biometry: BPD: 9.4 cm. 38w, 1d, 92 percent. HC: 33.4 cm. 38w, 1d, 57 percent. AC: 34.8 cm. 38w, 5d, 97 percent. FL: 7 cm. 35w, 5d, 23 percent. FL/AC ratio: Greater than19.99 percent. HC/AC ratio: 0.96. EFW: 3343 g. Weight: 7 lbs, 6 oz. age by this US: 37w, 5d. REJI by this US: 04/11/2025. Percentile by REJI: 84 percent. IMPRESSION: 1. Normal biophysical profile. 2. Sonographic gestational age 37 weeks 3 days and sonographic due date 04/11/2025. Sonographic age 1 week ahead of the clinical age. 3. Estimated weight 84th percentile. Abdominal circumference 97th percentile. 4. The bladder is distended. Amniotic fluid appears normal. The kidneys were not visualized. Mildly prominent small bowel loops are noted along with prominence of the stomach. These findings are indeterminate but recommend evaluation. Cirilo Page M.D. Diagnostic Radiologist [email or web address] bM/Dictated by: Cirilo Page MD @ 03/26/2025 4:04:00 PM (Electronically Signed)
--- OUTSIDE RECORDS SUMMARY | 2025-03-26 12:36 | XMS_ITS | Encounter Summary ---
Author Organization [facility] Address [address] [place] [address] Care Team Providers Care Human Services Case Manager Name Role Phone No Ref-Primary, Physician Primary Care Provider Encounter Details Date Type Department Care Team (Latest Contact Info) Description 02/11/2025 Travel Social History Tobacco Use Types Packs/Day Years Used Date Smoking Tobacco: Never Assessed Comments Unknown Sex and Gender Information Value Date Recorded Sex Assigned at Female 02/11/2025 8:06 PM CDT Legal Sex Female 4:22 AM ICER MACHINE Gender Identity Female 02/11/2025 8:06 PM CDT Sexual Orientation Straight 02/11/2025 8: 06 PM CDT documented as of this encounter Plan of Treatment Not on file documented as of this encounter Visit Diagnoses Not on filedocumented in this encounter Care Teams Human Services Case Manager Relationship Specialty Start Date End Date No Ref-Primary, Physician PCP - General 01/07/25 documented as of this encounter
--- OUTSIDE RECORDS SUMMARY | 2025-03-26 12:36 | XMS_ITS | Clinical Summary ---
Author Organization [facility] Address [address] [place] [address] Care Team Providers Care Computer Lab Aide Name Role Phone Joseph Escalante MD Primary Care Provider Source Comments You are receiving this document as you are listed as the primary care provider,follow-up provider, or the patient has been referred to you for consultation.This is in compliance with the Medicare and[facility] EHR Incentive Program,which states Providers who transition their patient to another setting of careor provider of care or refers their patient to another provider of care shouldprovide summary care record for each transition of care or referral. [employer] Allergies No known active allergies Medications No known medications Immunizations Immunization Administration Dates Next Due HepB Ped/Adol (0-18 yrs) 04/20/2003,03/19/2003 Influenza IIV4 (Quadrivalent) 0.5mL (36725) 11/01 MMR 03/19/2003 Pfizer Monovalent 12+ Purple [...] Comments Blood Pressure 102/70 12/25/2005 3:00 PM WOODEN BOX MAKER Pulse 76 03/04/2006 7:15 PM CDT Temperature [...] Date of Phone Billing Address Personal/Family 1968 [address] [facility] [place] [address] Care Teams Computer Lab Aide Relationship Specialty Start [place] [address] [place] [address] PCP - General 10/03/20
--- OUTSIDE RECORDS SUMMARY | 2025-03-26 12:36 | XMS_ITS | Clinical Summary ---
Author Organization [facility] Address [address] [place] [address]. [place] [address] Care Team Providers Care Caddymaster Name Role Phone No Ref-Primary, Physician Primary Care Provider Encounters Date Type Department Care Team Description 02/12/2025 11:41 AM CDT - 02/12/2025 11:59 PM CDT Hospital Encounter [facility] [address] [place] [phone] Non- Credentialed Provider, Radiology Joseph Miguel MD ventricular septal defect affecting antepartum care of mother Discharge Disposition: Home or Self Care 02/12/2025 Travel 02/11/2025 Travel 01/06/2025 Medical Correspondence [facility] Information Management [address] [facility] [address] [place] [address] Scan, Non-Provider from Last 3 Months Social History Tobacco Use Types Packs/Day Years Used Date Smoking Tobacco: Never Assessed Comments Unknown Sex and Gender Information Value Date Recorded Sex Assigned at Female 02/11/2025 8:06 PM CDT Legal Sex Female 4:22 AM IT TECHNICAL SPECIALIST Gender Identity Female 02/11/2025 8:06 PM CDT [...] AM CDT Narrative 02/17/2025 11:16 AM CDT [id number]^NON-FV CREDENTIALED PROVIDER^RADIOLOGY Study ID: [id number] [facility]'s [address] [address] Echocardiogram Name: NAHEED ESPINO Study Date: 02/12/2025 11:55 AM Patient Location: [facility] Gender: Female Patient Class: Outpatient : 1990 Age: 35 yrs Ordering Provider: NON-FV CREDENTIALED PROVIDER, RADIOLOGY Referring Provider: JOSEPH MIGUEL Performed By: La Hicks RDCS Reading Physician: Ramirez Ambrose MD Reason For Study: ventricular septal defect affecting antepartum care of mot Data: Number of fetuses: This is a taylor gestation. Due date: 04/18/2025. Gestational age: 30w5d. Delivery at: [place]. Specific Indication: echocardiogram performed for suspected ventricular [...] to the left atrium. There is laminar zyfjk-so-xxtm shunting across the foramen ovale. Atrioventricular valves: [...] Procedure Note Ramirez Ambrose MD - 02/17/2025 [id number]^NON-FV CREDENTIALED PROVIDER^RADIOLOGY Study ID:[id number] [facility]'[address] [place] [address] Echocardiogram Name: NAHEED ESPINO Study Date: 02/12/2025 11:55 AM Patient Location:[facility] Gender: Female Patient Class:Outpatient : 1990 Age: 35 yrs Ordering Provider: NON-FV CREDENTIALED PROVIDER, RADIOLOGY Referring Provider: JOSEPH MIGUEL Performed By: La Hicks RDCS Reading Physician: Ramirez Ambrose MD Reason For Study: ventricular septal defect affecting antepartumcare of mot Data: Number of fetuses: This is a taylor gestation. Duedate: 04/18/2025. Gestational age: 30w5d. Delivery at: [place]. Specific Indication: echocardiogram performed for suspected ventricular [...] in to the left atrium. There is rrgjmcgcmxdw-wd-oowt shunting across the foramen ovale. Atrioventricular valves: [...] - Final from Last 3 Months Insurance slinkset ACO slinkset O Care Teams Caddymaster Relationship Specialty Start Date End Date No Ref-Primary, Physician PCP - General 01/07/25
--- OUTSIDE RECORDS SUMMARY | 2025-03-26 12:36 | XMS_ITS | Encounter Summary ---
Author Organization [facility] Address [address] [place] [address] Care Team Providers Care Linux Network Systems Administrator Name Role Phone No Ref-Primary, Physician Primary Care Provider Encounter Details Date Type Department Care Team (Latest Contact Info) Description 02/12/2025 Travel Social History Tobacco Use Types Packs/Day Years Used Date Smoking Tobacco: Never Assessed Comments Unknown Sex and Gender Information Value Date Recorded Sex Assigned at Female 02/11/2025 8:06 PM CDT Legal Sex Female 4:22 AM RATING EXAMINER Gender Identity Female 02/11/2025 8:06 PM CDT Sexual Orientation Straight 02/11/2025 8: 06 PM CDT documented as of this encounter Plan of Treatment Not on file documented as of this encounter Visit Diagnoses Not on filedocumented in this encounter Care Teams Linux Network Systems Administrator Relationship Specialty Start Date End Date No Ref-Primary, Physician PCP - General 01/07/25 documented as of this encounter
--- OUTSIDE RECORDS SUMMARY | 2025-03-27 00:28 | XMS_ITS | Clinical Summary ---
Author Organization [facility] Address [address] [place] [address] Care Team Providers Care Grass Cutter Name Role Phone Joseph Escalante MD Primary Care Provider [phone] Source Comments You are receiving this document as you are listed as the primary care provider,follow-up provider, or the patient has been referred to you for consultation.This is in compliance with the Medicare and[facility] [place] EHR Incentive Program,which states Providers who transition their patient to another setting of careor provider of care or refers their patient to another provider of care shouldprovide summary care record for each transition of care or referral. [employer] Allergies No known active allergies Medications No known medications Immunizations Immunization Administration Dates Next Due HepB Ped/Adol (0-18 yrs) 04/20/2003,03/19/2003 Influenza IIV4 (Quadrivalent) 0.5mL (09396) 11/01 MMR 03/19/2003 Pfizer Monovalent 12+ Purple [...] Comments Blood Pressure 102/70 12/25/2005 3:00 PM GAS REFRIGERATOR SERVICER Pulse 76 03/04/2006 7:15 PM CDT Temperature [...] Date of Phone Billing Address Personal/Family 1968 [address] [facility] [place] [address] Care Teams Grass Cutter Relationship Specialty Start [place] [address] [place] [address] PCP - General 10/03/20
--- OUTSIDE RECORDS SUMMARY | 2025-03-27 00:28 | XMS_ITS | Encounter Summary ---
Author Organization [facility] Address [address] [place] [address] Care Team Providers Care Supervisor Paper Testing Name Role Phone No Ref-Primary, Physician Primary Care Provider Encounter Details Date Type Department Care Team (Latest Contact Info) Description 02/11/2025 Travel Social History Tobacco Use Types Packs/Day Years Used Date Smoking Tobacco: Never Assessed Comments Unknown Sex and Gender Information Value Date Recorded Sex Assigned at Female 02/11/2025 8:06 PM CDT Legal Sex Female 4:22 AM ENGINEERING TECHNOLOGIST Gender Identity Female 02/11/2025 8:06 PM CDT Sexual Orientation Straight 02/11/2025 8: 06 PM CDT documented as of this encounter Plan of Treatment Not on file documented as of this encounter Visit Diagnoses Not on filedocumented in this encounter Care Teams Supervisor Paper Testing Relationship Specialty Start Date End Date No Ref-Primary, Physician PCP - General 01/07/25 documented as of this encounter
--- OUTSIDE RECORDS SUMMARY | 2025-03-27 00:28 | XMS_ITS | Encounter Summary ---
Author Organization [facility] Address [address] [place] [address] Care Team Providers Care Recreation Supervisor Name Role Phone No Ref-Primary, Physician Primary Care Provider Encounter Details Date Type Department Care Team (Latest Contact Info) Description 02/12/2025 Travel Social History Tobacco Use Types Packs/Day Years Used Date Smoking Tobacco: Never Assessed Comments Unknown Sex and Gender Information Value Date Recorded Sex Assigned at Female 02/11/2025 8:06 PM CDT Legal Sex Female 4:22 AM WELFARE AIDE Gender Identity Female 02/11/2025 8:06 PM CDT Sexual Orientation Straight 02/11/2025 8: 06 PM CDT documented as of this encounter Plan of Treatment Not on file documented as of this encounter Visit Diagnoses Not on filedocumented in this encounter Care Teams Recreation Supervisor Relationship Specialty Start Date End Date No Ref-Primary, Physician PCP - General 01/07/25 documented as of this encounter
--- OUTSIDE RECORDS SUMMARY | 2025-03-27 00:28 | XMS_ITS | Clinical Summary ---
Author Organization [facility] Address [address] [place] [address]. [place] [address] Care Team Providers Care Test Deck Supervisor Name Role Phone No Ref-Primary, Physician Primary Care Provider Encounters Date Type Department Care Team Description 02/12/2025 11:41 AM CDT - 02/12/2025 11:59 PM CDT Hospital Encounter [facility] Heart Care [address] [place] [phone] Non- Credentialed Provider, Radiology Joseph Miguel MD ventricular septal defect affecting antepartum care of mother Discharge Disposition: Home or Self Care 02/12/2025 Travel 02/11/2025 Travel 01/06/2025 Medical Correspondence [facility] Information Management [address] [facility] [address] [place] [address] Scan, Non-Provider from Last 3 Months Social History Tobacco Use Types Packs/Day Years Used Date Smoking Tobacco: Never Assessed Comments Unknown Sex and Gender Information Value Date Recorded Sex Assigned at Female 02/11/2025 8:06 PM CDT Legal Sex Female 4: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 Gender Identity Female 02/11/2025 8:06 PM CDT [...] AM CDT Narrative 02/17/2025 11:16 AM CDT [id number]^NON-FV CREDENTIALED PROVIDER^RADIOLOGY Study ID: [id number] [facility]'s [address] [address] Echocardiogram Name: NAHEED ESPINO Study Date: 02/12/2025 11:55 AM Patient Location: [facility] Gender: Female Patient Class: Outpatient : 1990 Age: 35 yrs Ordering Provider: NON-FV CREDENTIALED PROVIDER, RADIOLOGY Referring Provider: JOSEPH MIGUEL Performed By: La Hicks RDCS Reading Physician: Ramirez Ambrose MD Reason For Study: ventricular septal defect affecting antepartum care of mot Data: Number of fetuses: This is a taylor gestation. Due date: 04/18/2025. Gestational age: 30w5d. Delivery at: [place]. Specific Indication: echocardiogram performed for suspected ventricular [...] to the left atrium. There is laminar bmecv-km-swex shunting across the foramen ovale. Atrioventricular valves: [...] Procedure Note Ramirez Ambrose MD - 02/17/2025 [id number]^NON-FV CREDENTIALED PROVIDER^RADIOLOGY Study ID:[id number] [facility]'[address] [place] [address] Echocardiogram Name: NAHEED ESPINO Study Date: 02/12/2025 11:55 AM Patient Location:[facility] Gender: Female Patient Class:Outpatient : 1990 Age: 35 yrs Ordering Provider: NON-FV CREDENTIALED PROVIDER, RADIOLOGY Referring Provider: JOSEPH MIGUEL Performed By: La Hicks RDCS Reading Physician: Ramirez Ambrose MD Reason For Study: ventricular septal defect affecting antepartumcare of mot Data: Number of fetuses: This is a taylor gestation. Duedate: 04/18/2025. Gestational age: 30w5d. Delivery at: [place]. Specific Indication: echocardiogram performed for suspected ventricular [...] in to the left atrium. There is uiedjqcifnxc-rx-ifdf shunting across the foramen ovale. Atrioventricular valves: [...] - Final from Last 3 Months Insurance Space Apart ACO Space Apart O Care Teams Test Deck Supervisor Relationship Specialty Start Date End Date No Ref-Primary, Physician PCP - General 01/07/25
== END 2025-03-26 11:46 | disposition home or self-care (01) ==
LOC: US 11:45
PROVIDERS: Visit Provider Obstetrics & Gynecology
DX: O14.93 Unspecified pre-eclampsia, third trimester (principal); Z3A.36 36 weeks gestation of pregnancy
CPT/HCPCS: 76816; 76819; 82565; 84450; 84460

== ENCOUNTER 2025-03-27 16:09 | Inpatient (IN) | payer OTHER, SELFPAY ==
[2025-03-27] VITALS (7 sets, daily range): BP systolic 122–134; BP diastolic 79–86; PULSE 62–93; RESP 12–18; TEMP 36.4–36.6; O2SAT 97–98; BMI 34.0
--- NOTE | 2025-03-27 16:44 | W.PM.LDBA ---
Subjective History of Present Illness Time Seen by Provider: 16:45 Date Seen: 03/27/25 Narrative: Patient is being admitted to Labor and Delivery for IOL due to preeclampsia w/o severe features. She is a 35 year old at 36 6/7 weeks gestation. Her full history and physical was dictated by Dr. MARVIN on 03/19/25. Please see this for details. No BUS AND SYS INTEGRATION SENIOR MANAGER irritability symptoms, no concerns for elevated BPs at home last night. Baby has been moving well, denies abnormal vaginal discharge or bleeding. Has not noticed any frequent abdominal tightening. Specific Issues/Plans G2 P 0010 Partner: Eliseo? Baby: Boy! Artemio or [facility] H&P completed by YON on 03/19/25? ? #Preeclampsia without severe features Dx 02/26, with transaminitis noted > transferred to center for observation BMZ given 02/26- Twice weekly testing, serial growth, weekly preE labs - testing sheet completed 02/26 IOL at 37w0d - 03/27 ripening, 03/28 IOL #FHx preE On asa 81mg #Small muscular VSD [x] s/p level 2 on 01/06 [x] echo: 02/12/23. Small midseptal VSD, otherwise normal. Rec: elective cardiology eval and echo in the first month of life. [x] repeat growth at 32 weeks in NH&C with MFM #Nonimmune to hepatitis-B. Discussed 10/09/24. Vis given. Recommended. She would still like to consider 11/06/24. #Twin di-di with loss of one fetus in first trimester #Snoring with ?KAR - Consider ENT referral ? Imaging:? 1st trimester: 09/11/2024-Twin diamniotic/dichorionic gestation. Twin A is living and measures 9 weeks 1 day with a sonographic due date of 04/15/2025. Subchorionic hemorrhage is present measuring 3.4 x 0.6 x 1.5 cm. Twin B is nonviable. Anatomy scan 12/04/2024: Visualized anatomy is within normal limits. Suboptimal views of the cardiac structures, plan to repeat in 4 weeks. EFW 411 g at 75th percentile, AC 57th percentile. Posterior placenta, no previa, three-vessel cord. MVP of 3.9 cm. Cervix long/closed. 12/25/2024: f/u to [facility] for cardiac views. 1. Sonographic gestational age 24 weeks 2 days and sonographic due date 04/14/2025. Sonographic gestational age is 4 days ahead of the clinical age. 2. Estimated weight 77th percentile. Abdominal circumference 72nd percentile. 3. Four chamber heart, LVOT, RVOT, 3 vessel view, 3 vessel trachea view, aortic arch and descending aorta all visualized on today's study. A possible small intraventricular septal defect may be present as visualized only on the color Doppler images. Level 2 maternal medicine consult recommended. 01/06: Small membranous VSD - refer to peds Cardiology. Other anatomy WNL. EFW 874g at 63%ile. MVP 4.2cm. Posterior placenta, breech. echo: Small mid septal muscular VSD noted. Otherwise normal anatomy. Recommended to have Peds Cardiology and echo in 1st month of life. Growth 02/26: EFW 2395g at 86%ile, AC 95%ile. MVP 7.1cm. Growth 03/26: EFW 3343 g or 7 lb 6 oz (84%), BPD 92%, HC 57%, AC 97%, FL 23%, SDP 7 cm, vertex. Incidental notation of enlarged stomach, dilated loops of bowel, and enlarged bladder. ? COVID: Declines Flu: Declines Tdap:?02/05/25 RSV:?N/A GBS: 34-35 weeks H&P: 35 weeks 32wk Mental Health:?02/26/25 34wk hgb:6/6 12.6 OB - Problem Based A/P Additional Plan (1) Pre-eclampsia affecting , antepartum: Status: Acute (2) : Status: Acute Plan 1. IOL to start tonight, cook catheter in place and plan to start IV Oxytocin overnight. 2. GBS negative no need for antibiotics. 3. Continuos monitoring. 4. Pain management as needed. 5. HELLP labs upon admission. Will repeat if concerns for severity arise. 6. Close monitoring of BPs, U/O, BUS AND SYS INTEGRATION SENIOR MANAGER irritability symptoms. OB Exam Physical Exam Vital signs: Pulse BP Pulse Ox 93 132/86 97 03/27/25 16:32 03/27/25 16:32 03/27/25 16:32 Detailed Labor and Delivery Exam Patient Gravid: yes Dilation (cm): 1 Effacement (%): 25 Cervix position: mid Consistency: medium Contraction Frequency: Irregular Contraction intensity: Mild Fetus (Single) Station: -3 Amniotic Membrane Status: intact Heart Rate Baseline: 120 Monitor Accelerations: Present Monitor Decelerations: None Correction Variability: Moderate (6-25)
[2025-03-27 17:01] LABS: Hematocrit 38.0 % (33.0-51.0); Hemoglobin* 13.0 gm/dL (12.0-16.0); Immature Granulocytes Pct Auto 0.3 %; Mean Corpuscular HGB Conc 34 gm/dL (32-36); Mean Corpuscular Hemoglobin 31 pg (26-34); Mean Corpuscular Volume 91 fL (80-100); RDW Coefficient of Variation % 12.2 % (11.5-15.5); Red Blood Count 4.17 m/uL (4.00-5.20); White Blood Count* 11.24 K/uL (4.50-11.00)
[2025-03-27 17:03] LABS: Protein Creatinine Ratio Urine 0.06 (0-0.19)
[2025-03-27 17:04] LABS: Immature Granulocytes Abs Auto 0.00 K/uL (0.00-0.30); Lymphocytes Absolute Auto 1.50 K/uL (0.90-2.90); Slide Review Reflex No
[2025-03-27 17:17] LABS: Alanine Aminotransferase* 25 U/L (4-35); Aspartate Amino Transferase* 38 U/L (12-35); Blood Urea Nitrogen* 6 mg/dL (5-24); Creatinine* 0.5 mg/dL (0.5-1.5); Est. Creatinine Clearance* 148.41; Estimated Glomerular Filt Rate 126 ml/min
[2025-03-27] MEDS: SODIUM CHLORIDE 0.9 % (FLUSH) 10 ML SYRINGE IVF (20:54)
[2025-03-27] MEDS: OXYTOCIN 30 unit/500 ML in NS 30 UNIT/500 ML BAG IVPB (20:55)
[2025-03-27] MEDS: LACTATED RINGERS 1000 ML 1,000 ML 75 ML IV (20:56)
[2025-03-28] VITALS (109 sets, daily range): BP systolic 97–160; BP diastolic 54–104; PULSE 55–114; RESP 12–24; TEMP 36.5–37.2; O2SAT 95–100
--- NOTE | 2025-03-28 07:41 | P.OBPN_ITS ---
Subjective Time Seen by Provider: 07:20 Date Seen: 03/28/25 Narrative: Okay Objective Vital Signs: Last Vital Signs Temp 98 F 03/28/25 07:23 Pulse 72 03/28/25 07:23 Resp 12 03/28/25 06:04 BP 113/59 L 03/28/25 07:23 Pulse Ox 98 03/28/25 06:04 Pelvic Exam Dilation (cm): 3.5 Effacement (%): 60 Station: -2 Contractions Monitor mode: External Contraction pattern: Regular Contraction intensity: Moderate Pitocin Rate (mU/min): 11 Assessment Assessment: induction ongoing Station: -2 Status: Category l Heart Rate Baseline: 130 Senior Living Variability: Moderate (6-25) Monitor Accelerations: Present Monitor Decelerations: None Maternal Status: Normal blood pressures, no BULLET SWAGING MACHINE OPERATOR irritability symptoms. Plan Plan: 1. Cervix checked this morning and recommendation given for AROM. Patient would like to eat breakfast and then AROM as she believes she would like epidural placement after AROM. 2. Preeclampsia w/o severe features: blood pressures have remained normal, no BULLET SWAGING MACHINE OPERATOR irritability symptoms, will continue close monitoring.
[2025-03-28] MEDS: LACTATED RINGERS 1000 ML 1,000 ML 75 ML IV ×5 (09:47→19:25)
[2025-03-28] MEDS: LIDOCAINE 2% (PF) 5 ML VIAL EPIDURAL (12:35)
[2025-03-28] MEDS: ROPIVACAINE 0.2% 100 ml 100 ML 12 MG EPIDURAL ×2 (12:38→20:49)
[2025-03-28] MEDS: PHENYLEPHRINE 100 MCG/ML SYRINGE IVP ×5 (12:47→13:53)
--- NOTE | 2025-03-28 12:54 | PM.ANBPRC ---
[facility] Medical History Miscarriage (06/04/23) ?O03.9 - Complete or unspecified spontaneous without complication (ICD-10) Family History Grandmother Stroke Father Ocular melanoma Social History Narrative: Works in [employer]. Significant other Nonsmoker No alcohol use What is your current living situation?: I presently have a place to live Problems where you live: no known problems In the past 12 months, utilities in danger of being shut off: no In past 12 months, lack of transportation kept you from medical appts, meetings, work, or getting things needed for daily living: no In the past 12 mos, have been you worried that your food would run out before you had money to buy more?: never true In the past 12 mos, the food you bought just didn't last and you didn't have money to buy more?: never true Smoking Status: Never smoker How often does anyone, including family, friends and others, physically hurt you: never How often does anyone, including family, friends and others, insult or talk down to you: never How often does anyone, including family, friends and others, threaten you with harm: never How often does anyone, including family, friends and others, scream or curse at you: never Meds Home Medications and Allergies Home Medications ?Medication ?Instructions ?Recorded ?Confirmed ?Type docosahexaenoic acid 200 mg 200 mg PO DAILY 09/11/24 03/27/25 History capsule ( DHA) aspirin 81 mg tablet,delayed 81 mg PO QDAY 10/09/24 03/27/25 History release Allergies Allergy/AdvReac Type Severity Reaction Status Date / Time No Known Drug Allergies Allergy Verified 03/27/25 16:24 Results Labs Labs: Laboratory Results - last 24 hr 03/27/25 03/27/25 16:39 16:55 WBC 11.24 H RBC 4.17 Hgb 13.0 Hct 38.0 MCV 91 MCH 31 MCHC 34 RDW Coeff of Nicole 12.2 Plt Count 193 Neut % (Auto) 78.6 H Lymph % (Auto) 13.7 L Dewitt % (Auto) 6.7 Eos % (Auto) 0.6 Baso % (Auto) 0.1 Neut # (Auto) 8.80 H Lymph # (Auto) 1.50 Dewitt # (Auto) 0.80 Eos # (Auto) 0.10 Baso # (Auto) 0.00 Abs Immat Gran (auto) 0.00 Imm/Tot Granulo (auto) 0.3 BUN 6 Creatinine 0.5 Estimated Creat Clear 148.41 Estimated GFR 126 AST 38 H ALT 25 Urine Creatinine 81.9 Protein/Creatinin Ratio 0.06 Urine Total Protein < 5 Blood Type O Positive Antibody Screen NEGATIVE Vital Signs Vital Signs: Last Vital Signs Temp 97.7 F 03/28/25 11:43 Pulse 75 03/28/25 12:52 Resp 20 03/28/25 11:43 BP 107/61 03/28/25 12:52 Pulse Ox 100 03/28/25 12:53 Weight: 95.527 kg Height: 167.64 cm Anesthesia Procedures Epidural Insertion Patient Location: OB Start Time: 12:00 Stop Time: 13:00 Start Date: 03/28/25 Stop Date: 03/28/25 Reason for Block: primary anesthetic Patient Position: sitting Performed By: Rajiv Castrejon Preanesthetic Checklist: IV checked, risks and benefits discussed, surgical consent, monitors and equipment checked, pre-op evaluation, timeout performed and anesthesia consent Prep: chlorhexidine gluconate Monitoring: blood pressure monitoring, cardiac rehab nurse, continuous pulse oximetry and heart rate Approach: midline Vertebral Space: lumbar (1-5) Needle Type: Tuohy needle Injection Technique: continuous catheter Needle gauge: 17 Needle Length (cm): 10 cm Needle Insertion Depth (cm): 6 Catheter Gauge: 19 Catheter Type: multi-orifice Catheter at skin depth (cm): 12 Test Dose Result: negative and lidocaine 1.5% with epinephrine 1 to 200,000 Events: other
--- NOTE | 2025-03-28 14:41 | PM.OBPNL ---
Subjective Time Seen by Provider: 14:41 Date Seen: 03/28/25 Narrative: Okay, more comfortable after epidural. Objective Vital Signs: Last Vital Signs Temp 98.4 F 03/28/25 14:03 Pulse 61 03/28/25 14:38 Resp 20 03/28/25 11:43 BP 123/71 03/28/25 14:38 Pulse Ox 98 03/28/25 14:18 Pelvic Exam Dilation (cm): 4 Effacement (%): 60 Station: -2 Contractions Monitor mode: External Contraction pattern: Regular Contraction intensity: Moderate Pitocin Rate (mU/min): 13 Assessment Assessment: induction ongoing Station: -2 Amniotic Membrane Status: AROM Status: Category l Heart Rate Baseline: 130 Technology Professional Variability: Moderate (6-25) Monitor Accelerations: Present Monitor Decelerations: Late Labor Progress: Re check of cervix this afternoon after AROM, she is still 4cm w/o significant change in her effacement and station. I recommended placement of IUPC to better manage Oxytocin. With placement I did notice bloody fluid in the tube and pulled it back until more clear fluid noted, but a prolonged deceleration followed. Patient was re positioned, Oxytocin was d/c and IUPC was pulled out. Once heart rate recovered I was able to place a new IUPC in a different direction and this is working and heart rate has remained at a normal baseline. Will keep close monitoring, plan to restart Oxyotcin with reassuring heart rate tracing. Plan Plan: IUPC in place, plan to restart Oxytocin hopefully in about 30-40 min. Close monitoring of heart rate tracing.
--- NOTE | 2025-03-28 21:30 | PM.OBPNL ---
Subjective Time Seen by Provider: 20:44 Date Seen: 03/28/25 Objective Exam: Tired Vital Signs: Last Vital Signs Temp 98.5 F 03/28/25 20:09 Pulse 96 03/28/25 21:09 Resp 12 03/28/25 20:09 BP 126/83 03/28/25 21:09 Pulse Ox 95 03/28/25 21:26 Pelvic Exam Dilation (cm): 6 Effacement (%): 90 Station: -1 Contractions Monitor mode: Internal Contraction pattern: Regular Contraction intensity: Moderate Pitocin Rate (mU/min): 0 Assessment Assessment: induction ongoing Station: -1 Amniotic Membrane Status: AROM Status: Category lll Heart Rate Baseline: 130 Monitor Accelerations: Present Monitor Decelerations: Late Tracing Comments: Repetitive late decelerations noted at around 7:30pm. Resolved with position changes at around 8pm. At around 8:30pm repetitive late decelerations again noted. I was just coming out of another delivery and was notified by nurses that they believed patient was 9cm dilated. At around 8:44pm at bedside I checked her and she was 6cm dilated, bedside US completed shows OP vertex. Discussed status with patient and . At around 9:08 pm has late deceleration that is more prolonged, I had asked to decrease Oxytocin but at this time I ordered Oxytocin to be discontinued, resuscitative measures and position changes. If tracing does not improve after these interventions we will proceed with delivery at this time. I have already introduced the idea of delivery due to slow progress, but in reality not completely uncommon for a primip patient. So discussed the option to try some additional position changes before proceeding with (but at the time of my discussion with patient and I had not had the opportunity to sit down and evaluate tracing entirely since I was in OR). At this moment 9:44pm tracing showing minimal variability, contractions have spaced out. I will recommend delivery now.
[2025-03-28] MEDS: AZITHROMYCIN 500 MG in 0.9 % SODIUM CHLORIDE 250 ml 250 ML 255 MG IVPB (22:08)
--- NOTE | 2025-03-28 22:20 | P.OBPRC_ITS ---
OB Delivery Proc Additional Procedures Tubal Ligation at the time of : No Other: No Procedure Date of procedure: 03/28/25 Pre-op diagnosis: IUP at 37 0/7 weeks Preeclampsia w/o severe features Arrest of dilation intolerance of labor Post-op diagnosis: same (Now delivered) Procedure Done: Global Will [facility] bill your pro fee for this procedure?: Yes Blood Loss Measurement Type: QBL (441mL) Bakri Used: No IV fluids (mL): 1,300 Urine Output (mL): 50 Urine Output Comment: Clear urine at end of procedure Surgeon: Casimiro Aden MD Anesthesia Type: Epidural Findings: FINDINGS: Live-born male , vertex OP presentation, Apgars 7 and 8 at 1 and 5 minutes respectively. weight 7 lb 0 oz. Grossly normal bilateral ovaries and fallopian tubes. Procedure Name: Primary Low Transverse Section Procedure Description: PROCEDURE: After obtaining informed consent, the patient was taken to the operating room where epidural anesthesia was found to be adequate. She was prepared and draped in the normal sterile fashion in the dorsal supine position with a leftward tilt. A Pfannenstiel skin incision was made with a scalpel about 2 cm above symphysis pubic bone, 12-14 cm in length. This incision was carried down to the underlying layer of fascia with the Bovie and scalpel. The fascia was incised in the midline and the incision extended laterally. The rectus muscles were then in the midline. Peritoneum entered bluntly. The Alonzo O retractor was then placed into the incision. The lower uterine segment was then incised in a transverse fashion with the scalpel. Upon entry into the uterus, clear amniotic fluid was noted. The uterine incision was extended cephalo caudally with blunt finger fractionation. The infant's head was delivered atraumatically, followed by the remainder of the 's body. The cord was doubly clamped and cut after 30 seconds of delayed cord clamping and the was handed off the field to [facility] for evaluation. The placenta was delivered spontaneously with umbilical cord traction and fundal massage. The uterus was cleared of all clots and debris. The uterine incision was reapproximated in a running locking fashion with a 0 Vicryl suture. A 2nd layer of the same suture was used to imbricate in horizontal fashion. The gutters were inspected and cleared of blood clot. All instruments and retractors were removed. Peritoneal layer was approximated with Vicryl 3-0 in a continuous fashion. Subfascial muscles and tissue inspected and hemostasis secured. The fascia was reapproximated in a running fashion with a looped 0 Vicryl suture. The subcutaneous tissues were copiously irrigated, inspected and hemostasis secured. The subcutaneous fat layer was reapproximated with running sutures of 3-0 Vicryl. The skin was closed in a subcuticular fashion with 4-0 Monocryl. LiquiBand and dressing were applied. The patient tolerated the procedure well. Sponge, lap, needle, and instrument counts were reported as correct x2. The patient was taken to the recovery room, awake, and in stable condition. She did receive 2 grams of IV Ancef and 500mg of IV Azithromycin preoperatively. Complications: None Pathology: specimen obtained, sent to pathology (Placenta) Surgery Debrief Performed: Yes Condition: stable Disposition: floor
[2025-03-28] MEDS: CEFAZOLIN 2 GM INJ IVP (22:28)
--- NOTE | 2025-03-28 23:59 | P.ANES_ITS ---
Anesthesia Charges Start Date/Time Anesthesia Start Date: 03/28/25 Anesthesia Start Time: 22:17 Stop Date/Time Anesthesia Stop Date: 03/28/25 Anesthesia Stop Time: 23:44 Summary Emergency: HOG COUNTER Coding CPT Codes CPT Codes: ANES/ANALG CS DELIVER ADD-ON - 17554 ([id number]) P3 - PATIENT W/SEVERE SYS DISEASE, QZ - HOG COUNTER SVC W/O PIPING ENGINEER BY Additional Codes: Summary - Emergency: HOG COUNTER ([id number])
--- NOTE | 2025-03-28 23:59 | W.ANESCHARGE ---
Anesthesia Charges Start Date/Time Anesthesia Start Date: 03/28/25 Anesthesia Start Time: 22:17 Stop Date/Time Anesthesia Stop Date: 03/28/25 Anesthesia Stop Time: 23:44 Summary Emergency: DOWEL MACHINE OPERATOR Coding CPT Codes CPT Codes: ANES/ANALG CS DELIVER ADD-ON - 53971 ([id number]) P3 - PATIENT W/SEVERE SYS DISEASE, QZ - DOWEL MACHINE OPERATOR SVC W/O FISH BAIT PROCESSING SUPERVISOR BY Additional Codes: Summary - Emergency: DOWEL MACHINE OPERATOR ([id number])
[2025-03-29] VITALS (40 sets, daily range): BP systolic 107–142; BP diastolic 63–95; PULSE 66–93; RESP 12–18; TEMP 36.4–36.9; O2SAT 95–100
--- NOTE | 2025-03-29 00:02 | W.PM.NB ---
Nerve Block Nerve Block Time Seen by Provider: 23:48 Date Seen: 03/28/25 Type of block requested by surgeon for post-operative analgesia: TAP Side: bilateral Time out performed: Yes Verification of patient name: Yes Verification of date of : Yes Site marking: not applicable Name of person performing procedure: Anika Continuous monitoring Was continuous monitoring of O2 sat, B/P, electronic device monitor, recorded every 15 minutes?: Yes Procedure Checklist: sterile prep, needles and gloves Ultrasound guided. Images saved: Yes Medications given in 5ml increments after negative aspiration: Marcaine %: 0.25 mL: 30 Needle gauge: 20 and Exparel mL: 10 Patient tolerated procedure well: Yes Block Charges Block Charge (with Pro Fee): TAP Bilateral Use of Ultrasound Machine for Block: Yes- US Guidance/pain block
[2025-03-29] MEDS: LACTATED RINGERS 1000 ML 1,000 ML 75 ML IV (01:30)
[2025-03-29 06:49] LABS: Hematocrit 33.0 % (33.0-51.0); Hemoglobin* 11.3 gm/dL (12.0-16.0); Immature Granulocytes Pct Auto 0.3 %; Mean Corpuscular HGB Conc 34 gm/dL (32-36); Mean Corpuscular Hemoglobin 32 pg (26-34); Mean Corpuscular Volume 92 fL (80-100); RDW Coefficient of Variation % 12.1 % (11.5-15.5); Red Blood Count 3.59 m/uL (4.00-5.20); White Blood Count* 19.28 K/uL (4.50-11.00)
[2025-03-29 06:50] LABS: Immature Granulocytes Abs Auto 0.10 K/uL (0.00-0.30); Lymphocytes Absolute Auto 0.70 K/uL (0.90-2.90); Slide Review Reflex No
[2025-03-29 07:04] LABS: Blood Urea Nitrogen* 7 mg/dL (5-24); Creatinine* 0.5 mg/dL (0.5-1.5); Est. Creatinine Clearance* 148.41; Estimated Glomerular Filt Rate 126 ml/min
[2025-03-29 07:05] LABS: Alanine Aminotransferase* 21 U/L (4-35); Aspartate Amino Transferase* 39 U/L (12-35)
[2025-03-29] MEDS: ACETAMINOPHEN 500 MG TABLET 1000 MG PO ×2 (08:54→14:51)
[2025-03-29] MEDS: DOCUSATE SODIUM 100 MG CAPSULE PO (08:54)
--- NOTE | 2025-03-29 09:00 | PC.NURSE ---
Catheter removed. Tip intact. 650cc clear, yellow urine drained. Patient was able to walk around room without difficulty. Measuring hat placed in toilet.
--- NOTE | 2025-03-29 15:15 | PM.OBPNVD1 ---
OB - PN:Subj Subjective Time Seen by Provider: 15:15 Date Seen: 03/29/25 Patient comments OB post-: pain well controlled, tolerating diet and flatus present status: and doing well [place] feeding status: other (pumping as reports baby didn't feed well at last feed. reports encouraged her to pump. has latched on well already. ) Narrative: [Carol] feels well.? Her pain is well controlled with current medications.? She has no new complaints.? Urinary output is adequate and she is voiding without difficulty.? Has a good appetite, is tolerating a general diet, is passing flatus, and has [not] had a bowel movement.? Has [normal] amount of rubra lochia.? She is ambulating well.? OB - PN: Obj Exam Physical Exam: Vital signs: Temp Pulse Resp BP Pulse Ox O2 Del Method 98.4 F 81 16 129/84 96 Room Air 03/29/25 11:30 03/29/25 11:30 03/29/25 14:18 03/29/25 11:30 03/29/25 11:30 03/29/25 11:30 Narrative: GENERAL APPEARANCE:? normal affect, alert, no distress? MOOD:? appropriate? CHEST:? clear to auscultation and percussion? HEART:? regular rate and rhythm? ABDOMEN:? soft, non-tender the uterine fundus is firm and is appropriate for the stage of recovery. Incision [dressing c/d/i].? EXTREMITIES:? +1 in RLE and trace in LLE edema? OB - PN: Obj Data Labs Labs: Laboratory Results - last 24 hr 03/29/25 05:55 WBC 19.28 H RBC 3.59 L Hgb 11.3 L Hct 33.0 MCV 92 MCH 32 MCHC 34 RDW Coeff of Nicole 12.1 Plt Count 174 Neut % (Auto) 91.1 H Lymph % (Auto) 3.7 L Mitchell % (Auto) 4.8 Eos % (Auto) 0.0 Baso % (Auto) 0.1 Neut # (Auto) 17.60 H Lymph # (Auto) 0.70 L Mitchell # (Auto) 0.90 Eos # (Auto) 0.00 Baso # (Auto) 0.00 Abs Immat Gran (auto) 0.10 Imm/Tot Granulo (auto) 0.3 BUN 7 Creatinine 0.5 Estimated Creat Clear 148.41 Estimated GFR 126 AST 39 H ALT 21 OB - PN: A/P Delivery Assessment and Plan (1) Pre-eclampsia affecting , antepartum: Status: Inactive (2) Lactating mother: Status: Acute (3) S/P primary low transverse : Status: Acute (4) Pre-eclampsia, : Status: Acute Plan day: 1 Plan: routine care Comments: Potential d/c tomorrow depending on how mom/baby diad are doing.
[2025-03-30 02:44] VITALS: BP 131/88; PULSE 87; RESP 18; TEMP 36.4; O2SAT 98
[2025-03-30 06:25] LABS: Hematocrit 30.3 % (33.0-51.0); Hemoglobin* 10.1 gm/dL (12.0-16.0); Immature Granulocytes Pct Auto 0.3 %; Mean Corpuscular HGB Conc 33 gm/dL (32-36); Mean Corpuscular Hemoglobin 31 pg (26-34); Mean Corpuscular Volume 93 fL (80-100); RDW Coefficient of Variation % 12.5 % (11.5-15.5); Red Blood Count 3.26 m/uL (4.00-5.20); White Blood Count* 12.01 K/uL (4.50-11.00)
[2025-03-30 06:28] LABS: Immature Granulocytes Abs Auto 0.00 K/uL (0.00-0.30); Lymphocytes Absolute Auto 1.60 K/uL (0.90-2.90); Slide Review Reflex No
[2025-03-30 06:38] LABS: Alanine Aminotransferase* 20 U/L (4-35); Aspartate Amino Transferase* 47 U/L (12-35); Blood Urea Nitrogen* 9 mg/dL (5-24); Creatinine* 0.6 mg/dL (0.5-1.5); Est. Creatinine Clearance* 123.68; Estimated Glomerular Filt Rate 121 ml/min
[2025-03-30 07:40] VITALS: BP 121/82; PULSE 79; RESP 16; TEMP 36.6; O2SAT 96
[2025-03-30] MEDS: DOCUSATE SODIUM 100 MG CAPSULE PO (08:38)
--- NOTE | 2025-03-30 10:40 | PM.OBDSVD1 ---
DS: Providers Provider Date Seen: 03/30/25 Date of admission: 03/27/25 16:09 Primary care physician: Not a Local Provider Admitting Clinician: Hannah Aden MD Attending Physician on discharge: Sarah Pérez CNM Date of Discharge: 03/30/25 DS: Diagnosis Discharge Diagnosis (1) care and examination of lactating mother: Status: Acute (2) Pre-eclampsia, : Status: Acute (3) S/P primary low transverse : Status: Acute (4) Lactating mother: Status: Acute (5) Transaminitis: Status: Acute Exam Narrative: Exam Narrative: VSS. ?Afebrile GENERAL APPEARANCE: ?normal affect, alert, no distress MOOD: ?appropriate HEENT: normocephalic, neck supple, full ROM CHEST: ?Symmetrical chest wall movement. ?Normal respiratory effort. ?Clear to auscultation HEART: ?regular rate and rhythm ABDOMEN: ?soft, non-tender. Uterine fundus is firm, at Umbilicus, Midline and is appropriate for the stage of recovery. ?Bowel sounds present. EXTREMITIES: ?normal and no edema SKIN: warm, dry. ? ?Incision clean/dry/well approximated. ?No signs of infection noted. Const: Vital Signs, click to edit/add: Vital Signs - 24 hr 03/29/25 11:18 03/29/25 11:30 03/29/25 12:18 Temperature 98.4 F Pulse Rate [Pulse Oximeter] 81 Respiratory Rate 16 16 16 Blood Pressure [Le ft Arm] 129/84 Pulse Oximetry 96 Oxygen Delivery Me thod Room Air 03/29/25 13:18 03/29/25 14:18 03/29/25 16:30 Temperature Pulse Rate [Pulse Oximeter] Respiratory Rate 16 16 18 Blood Pressure [Le ft Arm] Pulse Oximetry Oxygen Delivery Me thod 03/29/25 16:30 03/29/25 17:18 03/29/25 18:20 Temperature 98 F Pulse Rate [Pulse Oximeter] 76 Respiratory Rate 18 16 18 Blood Pressure [Le ft Arm] 142/86 H Pulse Oximetry 97 Oxygen Delivery Me thod Room Air 03/29/25 19:05 03/29/25 19:20 03/29/25 20:00 Temperature 98.1 F Pulse Rate [Pulse Oximeter] 77 84 Respiratory Rate 18 18 Blood Pressure [Le ft Arm] 139/95 H 130/86 Pulse Oximetry 96 Oxygen Delivery Me thod Room Air 03/29/25 20:20 03/29/25 21:30 03/29/25 22:20 Temperature Pulse Rate [Pulse Oximeter] Respiratory Rate 16 18 18 Blood Pressure [Le ft Arm] Pulse Oximetry Oxygen Delivery Me thod 03/29/25 22:57 03/30/25 02:44 03/30/25 07:40 Temperature 98.4 F 97.6 F 97.9 F Pulse Rate [Pulse Oximeter] 89 87 79 Respiratory Rate 18 18 16 Blood Pressure [Le ft Arm] 126/77 131/88 121/82 Pulse Oximetry 98 98 96 Oxygen Delivery Me thod Room Air Room Air Room Air Documenting provider has reviewed patient's vital signs: yes OB - DS: Summary Hospital Course Hospital Course: Naheed is a 35 y.o. who was admitted to [facility] for labor. ?She had an uncomplicated .?The patient feels well. ?The pain is well controlled with current medications. ?She has no new complaints. ?She is breast feeding and reports things are going ok. She was nursing her baby while I was in the room and appeared comfortable. ? the patient has done well.? Vitals have been stable.? She has remained afebrile.? Has a good appetite, is tolerating a general diet. ?She is voiding without difficulty.? She is passing gas and has not had a bowel movement.? She is ambulating and denies any dizziness.? Has Small amount of rubra lochia. ?She is uncertain of her plan for prevention. She strongly desired discharge today, is not sleeping well here and voiced that she is upset that there was a mix up with her colostrum. Discussed discharge with shop and alteration tailor OB and ok as long a she has follow up in the clinic tomorrow to check blood pressures. Peripartum Data Infant delivery method: Primary C/S; Labored Procedures: Procedures Operation Date: 03/28/25 22:15 Actual Procedure Side Surgeon p Primary Low Transverse Section Hannah Aden MD complications: none [place] Gender: Male Discharge Plan: Home Status at Discharge Functional status at discharge: independent ambulation Overall status at discharge: patient is progressing back to baseline Time Spent with Patient Time attestation: Total time spent providing and/or coordinating discharge services: Time spent: Less than 30 minutes Discharge Plan Discharge Disposition: Home, Self-Care Date of Admission: 03/27/25 16:09 Attending Provider on Discharge: Sarah Pérez Primary Care Provider: Provider,Not a Local Condition: Stable Anticipated Discharge Date/Time: 03/30/25 12:00 Discharge Medications: New acetaminophen 500 mg Tablet 1,000 mg PO Q6H PRN (Reason: Pain) Qty: 0 0RF docusate sodium 100 mg Capsule 100 mg PO DAILY Qty: 90 0RF ibuprofen 600 mg Tablet 600 mg PO Q6H PRN (Reason: Pain) Qty: 60 0RF oxycodone 5 mg capsule 5 - 10 mg PO Q6H PRN (Reason: pain) Qty: 10 0RF Continued DHA 200 mg capsule 200 mg PO DAILY Discontinued aspirin 81 mg tablet,delayed release (DR/EC) 81 mg PO QDAY Discharge Orders: Discharge Order (Routine); Ordered 03/30/25 Ordered By: Sarah Pérez Patient Education: OB Over the Counter Medication Information, OB /Breast Feeding Additional Instructions: Discharge instructions were reviewed with the patient including signs and symptoms of infection and home going medications Lifting Restrictions: 20 pounds for 6 weeks No not submerge incision under water X 2 weeks? Nothing vaginally for 6 weeks: no tampons or intercourse Do not drive while taking narcotic pain medication(s) Off Work or School for 8 weeks [facility] for a BP check?03/31/25 Call with BP greater than or equal to 150/100 2-week visit: incision check, discuss infant feeding concerns, review control options and screen for anxiety/depression. 6-week visit for an annual exam. consultation services are available to all mothers and babies for the first year after delivery.? To make an appointment, please call [phone]. Activity Level: Activity as Tolerated Discharge Diet: Regular Follow Up Appointments: [facility] [Provider Group] Forms: [facility] Info Instructions
[2025-03-30] MEDS: ACETAMINOPHEN 500 MG TABLET 1000 MG PO (11:02)
== END 2025-03-30 12:45 | disposition home or self-care (01) | DRG 788 ==
PROVIDERS: Obstetrics & Gynecology; Admitting Provider Obstetrics & Gynecology; Visit Provider Obstetrics & Gynecology
PROC: 10D00Z1 Extraction of Products of Conception, Low, Open Approach (ICD-10-PCS; CPT 59514; principal; 2025-03-28 22:15)
DX: O14.04 Mild to moderate pre-eclampsia, complicating childbirth (principal); O76 Abnormality in fetal heart rate and rhythm complicating labor and delivery; O62.0 Primary inadequate contractions; G89.18 Other acute postprocedural pain; R74.01 Elevation of levels of liver transaminase levels; Z28.39 Other underimmunization status; Z3A.36 36 weeks gestation of pregnancy; Z37.0 Single live birth
CPT/HCPCS: 01967; 01968; 36415; 59200; 64488; 76815; 76942; 82565; 82570; 84156; 84450; 84460; 84520; 85025; 86592; 86850; 86900; 86901; 99140; A4314; A9270; C1726; J0456; J0665; J0666; J0690; J1100; J1885; J2270; J2274; J2405; J2590; J2795; J3010; J7050; J7120

== ENCOUNTER 2025-05-06 09:27 | Outpatient (CLI) | payer OTHER, SELFPAY | END 2025-05-06 09:28 | disposition home or self-care (01) | PROVIDERS: Visit Provider Registered Nurse | DX: O14.95 Unspecified pre-eclampsia, complicating the puerperium (principal) | CPT/HCPCS: 81513; 82565; 84450; 84460; 84520; 87481; 87491; 87591; 87661 ==

== ENCOUNTER 2025-05-12 10:46 | Outpatient (CLI) | payer OTHER, SELFPAY ==
--- NOTE | 2025-05-12 10:45 | CRLHL7_ITS ---
For Patients: As a result of the Century Cures Act, medical imaging exams and procedure reports are released immediately into your electronic medical record. You may view this report before your referring provider. If you have questions, please contact your health care provider. INDICATION: hemorrhage COMPARISON: None. TECHNIQUE: 2D cerna-scale and color Doppler images were acquired of the pelvis using a transabdominal and transvaginal approach. Transvaginal imaging performed to better visualize the endometrial stripe and ovaries. FINDINGS: Recent surgical changes of section noted with heterogeneous nonvascular tissue within the area measuring 2.5 x 2.4 x 4.1 cm. Uterus measures 9.3 cm in length by 4.2 cm in AP diameter by cm in transverse dimension. Endometrium measures up to 3 cm in the uterine fundus. Heterogeneous nonvascular echotexture is present associated with the endometrium. A trace amount of endometrial fluid is present. The ovaries are not visualized due to overlying bowel gas. There are no suspicious fluid collections within the cul-de-sac. IMPRESSION: Blood products within the section scar measuring 2.5 x 2.4 x 4.1 cm. Thickened and heterogeneous endometrium measuring up to 3 cm without increased vascularity. Trace amount of endometrial fluid. Dictated by Cirilo Page MD @ 05/12/2025 11:31:18 AM (Electronically Signed)
== END 2025-05-12 10:47 | disposition home or self-care (01) ==
LOC: US 10:47
PROVIDERS: Visit Provider Registered Nurse
DX: O72.1 Other immediate postpartum hemorrhage (principal); R93.89 Abnormal findings on diagnostic imaging of other specified body structures
CPT/HCPCS: 76830; 76856